=== PATIENT | female | born 1945 | race Caucasian/White ===

== ENCOUNTER → 2016-07-03 | Outpatient (CLI) | payer OTHER, BC | LOC: BMCIMAGING 10:17 | PROVIDERS: ATTEND Physician Assistant | DX: Z09 Encounter for follow-up examination after completed treatment for conditions other than malignant neoplasm (principal); Z96.641 Presence of right artificial hip joint ==

== ENCOUNTER → 2016-08-23 | Outpatient (CLI) | payer OTHER, BC | LOC: FIMAGING 10:23 | PROVIDERS: ATTEND Orthopaedic Surgery | DX: Z01.818 Encounter for other preprocedural examination (principal); M17.11 Unilateral primary osteoarthritis, right knee; M23.41 Loose body in knee, right knee ==

== ENCOUNTER 2016-10-18 16:54 | Emergency (ER) | payer OTHER, BC ==
[2016-10-18 18:18] LABS: COLOR AMBER
[2016-10-18 18:26] LABS: BACTERIA 1+ /hpf (NONE SEEN); MUCUS TRACE /lpf (NONE-1+); RBC,URINE 50-182 /hpf (0-3); WBC,URINE 50-182 /hpf (0-3)
[2016-10-18] MEDS ORDERED: IBUPROFEN 600 MG TAB PO ONE (18:57)
[2016-10-18] MEDS ORDERED: DIAZEPAM 2 MG TAB PO ONE (18:57)
--- NOTE | 2016-10-18 19:02 | EDPHY ---
H & P Time Seen by Provider: 10/18/16 18:41 HPI/ROS: CHIEF COMPLAINT: Dysuria HISTORY OF PRESENT ILLNESS: This is a 71-year-old female presenting to the emergency department for back spasms. Patient was sent over by [facility] diagnosed with the UTI was already given prescription for levofloxacin and per a.m., but patient was sent over for back spasms. Patient states has history of chronic lower back pain with a small sacral fracture. Denies any nausea vomiting fever chills REVIEW OF SYSTEMS: Constitutional: No fever, no chills. Eyes: No discharge. ENT: No sore throat. Cardiovascular: No chest pain, no palpitations. Respiratory: No cough, no shortness of breath. Gastrointestinal: No abdominal pain, no vomiting. No nausea Genitourinary: No hematuria. Dysuria Musculoskeletal: Lower back pain spasms Skin: No rashes. Neurological: No headache. Smoking Status: Never smoked Physical Exam: General Appearance: Alert, no distress. Non ill-appearing nontoxic appearing Eyes: Pupils equal and round no pallor or injection. ENT, Mouth: Mucous membranes moist. Respiratory: There are no retractions, lungs are clear to auscultation. Cardiovascular: Regular rate and rhythm. Gastrointestinal: Abdomen is soft, bilateral lower quadrant tenderness suprapubic pressure, no masses Neurological: No focal deficits answering questions appropriately Skin: Warm and dry, no rashes. Musculoskeletal: Neck is supple nontender. Bilateral CVA tenderness on palpation Extremities: symmetrical, full range of motion. Constitutional: Initial Vital Signs Temperature (C) 36.8 C 10/18/16 16:59 Heart Rate 95 10/18/16 16:59 Respiratory Rate 20 10/18/16 16:59 Blood Pressure 132/98 H 10/18/16 16:59 O2 Sat (%) 94 10/18/16 16:59 O2 Delivery Mode Nasal Cannula Allergies/Adverse Reactions: cephalexin monohydrate [From Keflex] Allergy (Verified 01/09/16 13:49) Hives latex Allergy (Verified 01/09/16 13:50) Rash Penicillins Allergy (Verified 01/09/16 13:49) Hives secobarbital sodium [From Seconal] Allergy (Verified 01/09/16 13:49) Hives sulfamethoxazole [From Septra] Allergy (Verified 01/09/16 13:49) Hives trimethoprim [From Septra] Allergy (Verified 01/09/16 13:49) Hives Home Medications: Medication Instructions Recorded Atenolol [Tenormin 25 mg (*)] 25 mg PO DAILY 01/09/16 Compounded Estrogen Cream E3 18/E2 1 eber TD AD 01/09/16 14.4/P4 250mg Compounded P4 Progesterone Capsule 1 cap PO AD 01/09/16 250mg Thyroid [[place] Thyroid 60 MG (*)] 45 mg PO DAILY10 01/09/16 GABAPENTIN 10/18/16 Medical Decision Making ED Course/Re-evaluation: Discussed ED plan of care: UA with culture. Ibuprofen Valium given for back spasms. 1939: Patient is already prescribed levofloxacin by provider at [facility]. Patient states she is feeling somewhat better now the that fentanyl injection has started working, along with the ibuprofen. Discharge home---> stable, discussed all discharge instructions Differential Diagnosis: Other differential diagnosis considered but not limited to pyelonephritis, urosepsis, and back spasms - Data Points Laboratory Results: 10/18/16 17:50 Urine Color JIA Urine Appearance MODERATELY TURBID Urine pH TNP Ur Specific [place] TNP Urine Protein TNP Urine Ketones TNP Urine Blood TNP Urine Nitrate TNP Urine Bilirubin TNP Urine Urobilinogen TNP Ur Leukocyte Esterase TNP Urine RBC 50-182 /hpf H /hpf (0-3) Urine WBC 50-182 /hpf H /hpf (0-3) Ur Epithelial Cells NONE SEEN /lpf /lpf (NONE-1+) Urine Bacteria 1+ /hpf H /hpf (NONE SEEN) Urine Mucus TRACE /lpf /lpf (NONE-1+) Urine Glucose TNP Medications Given: Discontinued Medications Diazepam (Valium) 2 mg PO EDNOW ONE Stop: 10/18/16 18:58 Last Admin: 10/18/16 19:58 Dose: 2 mg Ibuprofen (Motrin) 600 mg PO EDNOW ONE Stop: 10/18/16 18:58 Last Admin: 10/18/16 19:20 Dose: 600 mg Departure - Departure Disposition: Home, Routine, Self-Care Clinical Impression: Urinary tract infection Qualifiers: Urinary tract infection type: site unspecified Hematuria presence: without hematuria Qualified Code(s): N39.0 - Urinary tract infection, site not specified Condition: Good Instructions: Urinary Tract Infection in Women (ED), Dysuria (ED), Urinary Traction Infection in Older Adults (ED) Additional Instructions: 1. Take all antibiotics as prescribed by previous provider 2. Cranberry juice may be beneficial, increase water intake 3. Ibuprofen 600 mg every 6-8 hours as needed 4. I would also continue taking your additional medications as prescribed by her previous provider Referrals: Juanita Mason MD [Primary Care Provider] - As per Instructions
[2016-10-18 20:05] VITALS: BP 140/82; PULSE 93; RESP 18; TEMP 98.6; O2SAT 98
== END 2016-10-18 20:15 | disposition home or self-care (01) ==
DX: N39.0 Urinary tract infection, site not specified (principal); B96.89 Other specified bacterial agents as the cause of diseases classified elsewhere

== ENCOUNTER 2016-11-04 07:15 | Inpatient (IN) | payer OTHER, BC ==
[2017-01-13] MEDS ORDERED: VANCOMYCIN HCL/NORMAL SALINE 250 ML IV ONE ×2 (06:00→19:00)
[2017-01-13] MEDS ORDERED: TRANEXAMIC ACID 725 MG in NS 100 ML IV ONE (06:00)
[2017-01-13] MEDS ORDERED: ROPIVACAINE 0.2% 80 MG, EPINEPHrine 0.2 MG, KETOROLAC TROMETHAMINE 30 MG, morphINE 10 M... IU ONE (06:00)
[2017-01-13] MEDS ORDERED: VANCOMYCIN PHARMACY TO DOSE MISC ONE (06:00)
[2017-01-13] MEDS ORDERED: FAMOTIDINE 20 MG TAB PO ONE (06:12)
[2017-01-13] MEDS ORDERED: ACETAMINOPHEN 325 MG TAB PO ONE (06:12)
[2017-01-13] MEDS ORDERED: LIDOCAINE 1% 2 ML INJ ID PRN (06:13)
[2017-01-13] MEDS ORDERED: LR 1,000 ML IV ONE (06:13)
[2017-01-13] MEDS ORDERED: LIDOCAINE 1% 2 ML INJ ONE (06:28)
--- NOTE | 2017-01-13 06:41 | PDHPUP ---
History & Physical Update H&P update statement: This history and physical update is based on an assessment of the patient which was completed after admission or registration (within 24 hours), but prior to the surgery/procedure.
--- NOTE | 2017-01-13 06:43 | PDIAF ---
- Diagnosis Diagnosis: right knee djd Code Status: Full Code - Medication Management Discharge Medications: Medications to Continue on Transfer [place] Thyroid 60 MG (*) 60 mg PO DAILY 01/03/17 [Last Taken Unknown] Atenolol [Tenormin 25 mg (*)] 25 mg PO HS 01/03/17 [Last Taken 01/12/17 21:00] Discharge Medications: Refer to the Discharge Home Medication list for PRN reason. - Orders Services needed: Physical Therapy Activity/Weight Bearing Restrictions: daily dressing changes. may shower without bandage. no soaking or immersion. wbat. rom as tolerated. seek attn for increasing leg pain, swelling, drainage, other focal complaint - Follow Up Care Current Providers and Referrals: Juanita Mason MD [Primary Care Provider] -
[2017-01-13] MEDS ORDERED: THROMBIN (BOVINE) 5,000 UNIT VIAL TP ONE (07:06)
[2017-01-13] MEDS ORDERED: CALCIUM CHLORIDE 1 GM/10 ML INJ ONE (07:06)
--- NOTE | 2017-01-13 07:09 | PDANEPAE ---
ANE History of Present Illness Knee OA ANE Past Medical History - Cardiovascular History Hx Hypertension: Yes Hx Arrhythmias: No Hx Chest Pain: No Hx Coronary Artery / Peripheral Vascular Disease: No Hx CHF / Valvular Disease: No Hx Palpitations: No Cardiovascular History Comment: pcp monitors bp meds - Pulmonary History Hx COPD: No Hx Asthma/Reactive Airway Disease: No Hx Recent Upper Respiratory Infection: No Hx Oxygen in Use at Home: No Hx Sleep Apnea: No Sleep Apnea Screening Result - Last Documented: Negative - Neurologic History Hx Cerebrovascular Accident: No Hx Seizures: No Hx Dementia: No - Endocrine History Hx Diabetes: No Endocrine History Comment: hypothyroidism - Renal History Hx Renal Disorders: No - Liver History Hx Hepatic Disorders: No - Neurological & Psychiatric Hx Hx Neurological and Psychiatric Disorders: No - Cancer History Hx Cancer: No - Congenital Disorder History Hx Congenital Disorders: No - GI History Hx Gastrointestinal Disorders: No - Other Health History Other Health History: wears glasses - Chronic Pain History Chronic Pain: Yes (right knee and lower back) - Surgical History Prior Surgeries: 01/22/16 Right KURT with Repine. colonoscopy. right knee scope. cataract surgery fall 2014 ANE Review of Systems Review of Systems: - Exercise capacity METS (RN): 4 METS ANE Patient History - Allergies Allergies/Adverse Reactions: cephalexin monohydrate [From Keflex] Allergy (Verified 01/07/17 14:05) Hives latex Allergy (Verified 01/07/17 14:05) Rash Penicillins Allergy (Verified 01/07/17 14:05) Hives secobarbital sodium [From Seconal] Allergy (Verified 01/07/17 14:05) Hives sulfamethoxazole [From Septra] Allergy (Verified 01/07/17 14:05) Hives trimethoprim [From Septra] Allergy (Verified 01/07/17 14:05) Hives narcotics Allergy (Uncoded 01/07/17 14:05) Vomiting - Home Medications Home Medications: [place] Thyroid 60 MG (*) 60 mg PO DAILY 01/03/17 [Last Taken Unknown] Atenolol [Tenormin 25 mg (*)] 25 mg PO HS 01/03/17 [Last Taken 01/12/17 21:00] - NPO status NPO Since - Liquids (Date): 01/12/17 NPO Since - Liquids (Time): 21:00 NPO Since - Solids (Date): 01/12/17 NPO Since - Solids (Time): 18:00 - Smoking Hx Smoking Status: Never smoked - Family Anes Hx Family Hx Anesthesia Complications: none ANE Labs/Vital Signs - Vital Signs Blood Pressure: 122/82 Heart Rate: 70 Respiratory Rate: 16 O2 Sat (%): 95 Height: 162.56 cm Weight: 72.575 kg ANE Physical Exam - Airway Neck exam: FROM Mallampati Score: Class 2 Mouth exam: normal dental/mouth exam - Pulmonary Pulmonary: no respiratory distress - Cardiovascular Cardiovascular: regular rate and rhythym - ASA Status ASA Status: II ANE Anesthesia Plan Anesthesia Plan: spinal Regional Anesthesia: adductor canal FNB
[2017-01-13] MEDS ORDERED: POLYMYXIN B SULFATE 500,000 UNIT/10 ML SYR IRR ONE (07:10)
[2017-01-13] MEDS ORDERED: MIDAZOLAM 2 MG/2 ML VIAL IVP ONE (07:12)
[2017-01-13] MEDS ORDERED: SCOPOLAMINE HYDROBROMIDE 1 MG/3 DAYS PATCH TD ONE (07:13)
[2017-01-13] MEDS ORDERED: PROPOFOL/EMULSION 500 MG/50 ML BOTTLE IV ONE ×2 (07:18→08:39)
[2017-01-13] MEDS ORDERED: LACTULOSE 20 GM/30 ML UDCUP PO PRN (07:49)
[2017-01-13] MEDS ORDERED: POLYETHYLENE GLYCOL 3350 17 GM PKT PO PRN (07:49)
[2017-01-13] MEDS ORDERED: ONDANSETRON DISINTEGRATING 4 MG TAB PO PRN (07:49)
[2017-01-13] MEDS ORDERED: diphenhydrAMINE 25 MG CAP PO PRN (07:49)
[2017-01-13] MEDS ORDERED: DIPHENOXYLATE/ATROPINE LOMOTIL 1 TAB PO PRN (07:49)
[2017-01-13] MEDS ORDERED: oxyCODONE IR 5 MG TAB PO PRN (07:49)
[2017-01-13] MEDS ORDERED: BISACODYL 10 MG SUPP PR PRN (07:49)
[2017-01-13] MEDS ORDERED: PROMETHAZINE HCL 25 MG SUPPR PR PRN (07:49)
[2017-01-13] MEDS ORDERED: PROMETHAZINE HCL 25 MG/ML INJ IVP PRN ×2 (07:49→09:34)
[2017-01-13] MEDS ORDERED: traMADol 50 MG TAB PO PRN (07:49)
[2017-01-13] MEDS ORDERED: TEMAZEPAM 15 MG CAP PO PRN (07:49)
[2017-01-13] MEDS ORDERED: DIAZEPAM 5 MG TAB PO PRN (07:49)
[2017-01-13] MEDS ORDERED: ONDANSETRON 4 MG/2 ML VIAL IVP PRN ×2 (07:49→09:34)
[2017-01-13] MEDS ORDERED: MAGNESIUM HYDROXIDE 30 ML UDCUP PO PRN (07:49)
[2017-01-13] MEDS ORDERED: METOCLOPRAMIDE 10 MG/2 ML VIAL IVP PRN (07:49)
[2017-01-13] MEDS ORDERED: LR 1,000 ML IV SCH (08:00)
[2017-01-13] MEDS ORDERED: PHENYLEPHRINE HCL 100 MCG/ML SYR ONE (08:16)
[2017-01-13] MEDS ORDERED: epHEDrine SULFATE 10 MG/ML SYR ONE (08:38)
[2017-01-13] MEDS ORDERED: ARMOUR THYROID 60 MG PO SCH (09:00)
[2017-01-13] MEDS ORDERED: ROPIVACAINE HCL 150 MG/30 ML INJ ONE (09:13)
[2017-01-13] MEDS ORDERED: HYDROmorphONE/DILAUDID 1 MG/ML INJ IVP PRN (09:34)
[2017-01-13] MEDS ORDERED: fentaNYL 100 MCG/2 ML INJ IVP PRN (09:34)
[2017-01-13] MEDS ORDERED: NALOXONE HCL 0.4 MG/ML INJ IVP PRN (09:34)
--- NOTE | 2017-01-13 10:09 | POSTANESTH ---
Post Anesthetic Evaluation Cardiovascular Status: Normal, Stable Respiratory Status: Normal, Stable Level of Consciousness/Mental Status: Can Participate in Eval Pain Control: Adequate, Prn Tx Ordered Nausea/Vomiting Control: Adequate, Prn Tx Ordered Complications Possibly Related to Anesthesia: None Noted (Adductor canal block done in recovery)
[2017-01-13] MEDS: THYROID 60 MG TAB PO SCH (11:58)
[2017-01-13] MEDS: TRANEXAMIC ACID 650 MG TAB PO SCH ×3 (11:58→23:15)
[2017-01-13] MEDS: SENNOSIDES/DOCUSATE SODIUM TAB PO SCH ×2 (11:58→20:32)
[2017-01-13] MEDS: ACETAMINOPHEN 325 MG TAB PO SCH ×3 (12:05→23:15)
--- NOTE | 2017-01-13 15:15 | ASMTCMCOM ---
CM Note CM Note Notes: 01/13/2017 Case Management Note Reviewed chart. PT recommending home with outpatient rehab. No case management d/c needs identified d/t marital status and pt age. Case Management d/c poc: Home with family support when medically stable with follow up as directed. Case Management available if needs change. Date Signed: 01/13/2017 03:14 PM Electronically Signed By:Mirna Knowles RN
[2017-01-13] MEDS: FAMOTIDINE 20 MG TAB PO SCH (20:32)
[2017-01-13] MEDS: ASPIRIN 325 MG TAB PO SCH (20:32)
[2017-01-13] MEDS ORDERED: ATENOLOL 25 MG TAB PO SCH (21:00)
[2017-01-14 05:38] LABS: HEMATOCRIT 32.6 % (38.0-47.0); HEMOGLOBIN 11.3 g/dL (12.6-16.3)
[2017-01-14] MEDS: ACETAMINOPHEN 325 MG TAB PO SCH ×2 (05:43→11:32)
--- NOTE | 2017-01-14 07:27 | PDIAF ---
- Diagnosis Diagnosis: right knee djd Code Status: Full Code - Medication Management Discharge Medications: Medications to Continue on Transfer [place] Thyroid 60 MG (*) 60 mg PO DAILY 01/03/17 [Last Taken Unknown] Atenolol [Tenormin 25 mg (*)] 25 mg PO HS 01/03/17 [Last Taken 01/12/17 21:00] Aspirin [Aspirin 325 mg (*)] 325 mg PO DAILY tab 01/14/17 [Last Taken Unknown] Ondansetron Odt [Zofran Odt 4 mg (*)] 4 mg PO Q4HRS PRN #30 tab 01/14/17 [Last Taken Unknown] oxyCODONE IR [Oxycodone Ir (*)] 5 - 10 mg PO Q3HRS PRN #90 tab 01/14/17 [Last Taken Unknown] traMADol [Ultram 50 mg (*)] 50 mg PO Q6HRS PRN #60 tab 01/14/17 [Last Taken Unknown] Discharge Medications: Refer to the Discharge Home Medication list for PRN reason. - Orders Services needed: Physical Therapy Diet Recommendation: no restrictions on diet Diet Texture: Regular Texture Diet Activity/Weight Bearing Restrictions: daily dressing changes. may shower without bandage. no soaking or immersion. wbat. rom as tolerated. seek attn for increasing leg pain, swelling, drainage, other focal complaint - Follow Up Care Current Providers and Referrals: Juanita Mason MD [Primary Care Provider] -
[2017-01-14] MEDS: FAMOTIDINE 20 MG TAB PO SCH (07:54)
[2017-01-14] MEDS: ASPIRIN 325 MG TAB PO SCH (07:54)
[2017-01-14] MEDS: SENNOSIDES/DOCUSATE SODIUM TAB PO SCH (07:54)
[2017-01-14] MEDS: THYROID 60 MG TAB PO SCH (11:31)
[2017-01-14 11:34] VITALS: BP 110/66; PULSE 54; RESP 16; TEMP 98.2; O2SAT 94
--- NOTE | 2017-01-14 12:16 | GDS ---
[f rep st] DISCHARGE SUMMARY ADMISSION DIAGNOSIS: Right knee degenerative joint disease. DISCHARGE DIAGNOSIS: Right knee degenerative joint disease. PROCEDURE: Right total knee arthroplasty. OPERATIVE INDICATIONS: The patient is a 72-year-old woman who has end-stage arthritis to her right k nee. Clinical and radiographic features are consistent with this. She has failed all attempts at co nservative management. I have, therefore, recommended total knee replacement. She understood the ri sks, benefits, alternatives, and wished to proceed. Written consent was signed and placed in patient 's chart. HOSPITAL COURSE: The patient was admitted overnight after uncomplicated total knee arthroplasty. Abdifatah virgen tolerated the procedure well. At the time of discharge, she is tolerating an oral diet. Her pain is well controlled on oral medicines. She is voiding and stooling without difficulty. Incision is c lean, dry, and intact. Dressing is clean, dry, and intact. She has negative Homans. X-rays are sta ble with anatomic alignment. DISCHARGE ACTIVITY: She is weightbearing as tolerated. Range of motion as tolerated. Daily dressin g changes. No soaking or immersion. May shower without the bandage. DISCHARGE MEDICATIONS: Tramadol 50 mg 1-2 every 6 hours p.r.n. pain, oxycodone 5-15 mg q.4 hours p.r .n. pain, Zofran 4 mg oral tablet, 1 p.o. q.8 hours. DISCHARGE INSTRUCTIONS: Seek attention for increasing redness, swelling, drainage, discharge. FOLLOWUP: Follow up in the orthopedic clinic in 2 weeks. Copy requested to: primary care physician /[id number]/MODL
--- NOTE | 2017-01-14 14:19 | ASMTCMCOM ---
CM Note CM Note Notes: CM Discharge Note: Spoke with patient who wants to discharge home with outpatient PT; she did this last time she had a TKA with good results. Per PT notes from today and yesterday, this is a sufficient plan. I encouraged patient to call her surgeon's office if she had a change of heart. She has an RX for the outpatient rehab. Date Signed: 01/14/2017 02:18 PM Electronically Signed By:Masha Lynch RN
--- NOTE | 2017-01-14 14:52 | ASDISCHSUM ---
Discharge Information Plan Status:Home with No Needs Medically Cleared to Leave: Discharge Date:01/14/2017 02:22 PM CM D/C Disposition:Home, Routine, Self-Care ADT D/C Disposition:Home, Routine, Self-Care Projected Discharge Date:01/14/2017 02:22 PM Transportation at D/C:Family Discharge Delay Reason: Follow-Up Date:01/14/2017 02:22 PM Discharge Slot: Final Diagnosis: Placement Information Patient Contact Information Contact Name:CHEYANNE Relationship: Address:[address] City:[place] Alternate Phone: [facility]/Zip Code:[place] [address] Email: Financial Information Financial Class: Primary Plan Desc:MEDICARE INPATIENT Primary Plan Number:[id number] Secondary Plan Desc: OUT OF STATE [facility] Secondary Plan Number:[id number] Assessment Information [facility] CM Progress Note CM Note CM Note Notes: 01/13/2017 Case Management Note Reviewed chart. PT recommending home with outpatient rehab. No case management d/c needs identified d/t marital status and pt age. Case Management d/c poc: Home with family support when medically stable with follow up as directed. Case Management available if needs change. Date Signed: 01/13/2017 03:14 PM Electronically Signed By:Mirna Knowles RN [facility] CM Progress Note CM Note CM Note Notes: CM Discharge Note: Spoke with patient who wants to discharge home with outpatient PT; she did this last time she had a TKA with good results. Per PT notes from today and yesterday, this is a sufficient plan. I encouraged patient to call her surgeon's office if she had a change of heart. She has an RX for the outpatient rehab. Date Signed: 01/14/2017 02:18 PM Electronically Signed By:Masha Lynch RN Intervention Information
[2017-01-16] MEDS ORDERED: PATCH REMOVAL 1 EA PATCH TD SCH (07:14)
--- NOTE | 2017-01-17 23:10 | GOP ---
[f rep st] OPERATIVE REPORT DATE OF OPERATION: 01/13/2017 SURGEON: Bipin Manzano MD ASSOCIATE DIRECTOR OF SALES: Ernesto Gallagher, W[employer]TER, [facility], who was a medical necessity for the entirety of the case. PREOPERATIVE DIAGNOSIS: Right knee degenerative joint disease. POSTOPERATIVE DIAGNOSIS: Right knee degenerative joint disease. PROCEDURE PERFORMED: Right total knee arthroplasty, MAKOplasty. FINDINGS: SPECIMENS: To pathology, the bony cuts. DESCRIPTION OF PROCEDURE: The patient was identified in the preanesthesia area. The right knee wing rly demarcated as the operative site with indelible marker. She was given 2 g of Ancef intravenously en route to the operative suite. In the OR, general endotracheal anesthesia was administered. Atte ntion was turned to the right knee which was sterilely prepped and draped in the usual fashion. Appr opriate time-out was carried out. The limb was then exsanguinated and the tourniquet inflated to 275 mmHg. A standard anterior midline incision was made. Thick subcutaneous flaps were elevated follow ed by a medial parapatellar arthrotomy. The knee demonstrated tricompartmental arthritis. Decision was made to proceed with total knee replacement. Therefore, through 2 separate percutaneous incision s at the mid femur and mid falk, 2 pins were then placed and a femoral and tibial reference array aff ixed respectively. The femoral and tibial check point were fixed. The bony landmarks were then ente red into the computer in standard fashion. Soft tissue releases and adjustment of the components wer e facilitated to balance the knee throughout the flexion/extension arc. Using the MAKOplasty robot a ssistance, the femoral cuts and tibial cut were made. All bony fragments were withdrawn. A size 3 t ibial notch cutter was then placed and the notch cut made. Trial reduction with the femur revealed a ppropriate positioning alignment. A size 3 tibia was then pinned into the correct position. The ryley tral fins were placed and a trial reduction over a 9 mm polyethylene revealed full flexion, extension with stability throughout the flexion-extension arc. The patella was then everted, cut in a freehan d cutting technique and a 35 mm asymmetrical patella. Drill holes were made. The trial components w ere withdrawn. The bony surfaces were thoroughly cleansed and dried. In sequential fashion, the tib ial, femoral, and patellar components were cemented. The size 3 x 9 mm tibial polyethylene insert wa s then impacted, confirmed to be fully seated. The knee was copiously irrigated. All marginal cemen t was withdrawn. The capsular tissues were injected with a joint cocktail of ropivacaine, morphine, T oradol, and epinephrine. Medial parapatellar arthrotomy was closed using #1 Ethibond suture with the knee in 20 degrees of flexion. The knee was instilled with platelet-rich plasma solution. Subcutan eous tissue closed using a [place] Monocryl suture and emmie. Sterile dressing was applied. The pat ient was awakened, extubated, and taken to recovery room in good, stable condition. OPERATIVE INDICATIONS: Patient is a 72-year-old woman who has end-stage arthritis to her right knee. Clinical and radiographic features are consistent with this. She has failed all attempts at conser vative management. I have, therefore, recommended total knee replacement. She understood the risks, benefits, alternatives, and wished to proceed. Written consent was signed and placed in patient's c mitchell. TOTAL TOURNIQUET TIME: 65 minutes. COMPLICATIONS: None. IMPLANTS: [place] Triathlon PS femoral knee size 3, tibial base plate size 3. Tibial polyethylene 3 x 9 mm thick, and an asymmetrical all-poly patella. An additional tibial polyethylene insert had to be utilized given an asymmetric seating. This required removal of the initial component once the ce ment had fully dried and the final component was replaced and confirmed to be fully seated. DISPOSITION: To the recovery room, then the floor. She is weightbearing, range of motion as tolerat ed. /[id number]/MODL
== END 2017-01-14 14:22 | disposition home or self-care (01) | DRG 470 ==
LOC: F3N 01-13 05:47
PROVIDERS: ADMIT Orthopaedic Surgery; ATTEND Orthopaedic Surgery
PROC: 0SRC0J9 Replacement of Right Knee Joint with Synthetic Substitute, Cemented, Open Approach (ICD-10-PCS; principal; 2017-01-13 07:30)
DX: M17.11 Unilateral primary osteoarthritis, right knee (principal); I10 Essential (primary) hypertension; E03.9 Hypothyroidism, unspecified; Z96.641 Presence of right artificial hip joint
CPT/HCPCS: 97116-GP; 97161-GP; 97165-GO; C1713; G8978-GP-CK; G8979-GP-CI; G8987-GO-CI; G8988-GO-CI; G8989-GO-CI; J0171; J1885; J2250; J2370; J2704; J2795; J3370

== ENCOUNTER → 2016-12-17 | Outpatient (CLI) | payer OTHER, BC | LOC: BMCIMAGING 10:36 | PROVIDERS: ATTEND Internal Medicine | DX: R06.02 Shortness of breath (principal); M25.78 Osteophyte, vertebrae ==

== ENCOUNTER → 2017-01-22 | Outpatient (CLI) | payer OTHER, BC | LOC: FIMAGING 15:26 | PROVIDERS: ATTEND Orthopaedic Surgery | DX: R22.41 Localized swelling, mass and lump, right lower limb (principal); Z96.651 Presence of right artificial knee joint ==

== ENCOUNTER → 2017-02-25 | Outpatient (CLI) | payer OTHER, BC | LOC: BMCIMAGING 10:21 | PROVIDERS: ATTEND Physician Assistant | DX: Z47.1 Aftercare following joint replacement surgery (principal); Z96.651 Presence of right artificial knee joint; M79.89 Other specified soft tissue disorders; M25.461 Effusion, right knee ==

== ENCOUNTER → 2017-03-05 | Outpatient (CLI) | payer OTHER, BC | LOC: BMCIMAGING 13:25 | PROVIDERS: ATTEND Internal Medicine | DX: Z12.31 Encounter for screening mammogram for malignant neoplasm of breast (principal); Z13.820 Encounter for screening for osteoporosis; D25.9 Leiomyoma of uterus, unspecified; Z80.41 Family history of malignant neoplasm of ovary; M85.89 Other specified disorders of bone density and structure, multiple sites | CPT/HCPCS: G0202 ==

== ENCOUNTER → 2017-04-08 | Outpatient (CLI) | payer OTHER, BC | LOC: BMCIMAGING 10:32 | PROVIDERS: ATTEND Physician Assistant | DX: Z47.1 Aftercare following joint replacement surgery (principal); Z96.651 Presence of right artificial knee joint ==

== ENCOUNTER → 2017-06-25 | Outpatient (CLI) | payer OTHER, BC | LOC: BMCIMAGING 09:33 | PROVIDERS: ATTEND Physician Assistant | DX: Z47.1 Aftercare following joint replacement surgery (principal); Z96.651 Presence of right artificial knee joint ==

== ENCOUNTER 2017-12-08 10:54 | Observation (INO) | payer OTHER, BC ==
--- NOTE | 2017-12-08 11:06 | EDPHY ---
H & P Time Seen by Provider: 12/08/17 11:03 HPI/ROS: CHIEF COMPLAINT: Chest pain with exertion HISTORY OF PRESENT ILLNESS: Patient is a history of hypertension. She has had some exertional symptoms over the last month. There is a hill next to her house when she walks up them she gets chest tightness which resolved when she stopped or when she gets the top and it is flat. This morning she awakened at 7 :00 a.m. With chest discomfort and tightness taken aspirin and went away after several minutes. When she did her usual hill walk the chest tightness was much worse than usual, associated with shortness of breath and radiation to both arms. Symptoms were moderate but now are gone because she turned around and came to the ER. Not associated with belching or burping or cough or hemoptysis or leg swelling. REVIEW OF SYSTEMS: Eye: no change in vision ENT: no sore throat Cardiac: HPI Pulmonary: no cough or SOB Abdomen: no vomiting, diarrhea, abdominal pain Musculoskeletal: no back pain Skin: no rash Neuro: no headache Constitutional: no fever : no urinary symptoms A comprehensive 10 point review of systems is otherwise negative aside from elements mentioned in the history of present illness. PAST MEDICAL HISTORY: Negative for cholesterol or diabetes, positive for hypertension and right hip replacement. Hypothyroid. Family history both parents had GA in their 80s Social history: Nonsmoker, scheduled to go on a trip to [place] in 2 weeks. General Appearance: Alert and conversant, cooperative. Eyes: No scleral icterus. ENT, Mouth: Normal mucous membranes. Respiratory: Normal respiratory effort, breath sounds equal, lungs are clear to auscultation. Cardiovascular: Regular rate and rhythm. Gastrointestinal: Abdomen is soft and non tender. Neurological: Alert, face symmetric, normal motor and sensory in extremities. Skin: Warm and dry, no rashes. Musculoskeletal: No peripheral edema. Psychiatric: Not agitated. Emergency Department course/MDM: No aspirin as she took a regular aspirin at 7:00 a.m.. 1150 Santosh @ [facility], to see in ED. High suspicion for acute coronary syndrome, unstable angina. Dr. Alvarez to see per Santosh Ramos, at 12:10 p.m. 1308: Per cardiology, to catheterization lab. Smoking Status: Never smoked Constitutional: Initial Vital Signs Temperature (C) 36.7 C 12/08/17 10:58 Heart Rate 87 12/08/17 10:58 Respiratory Rate 18 12/08/17 10:58 Blood Pressure 148/85 H 12/08/17 10:58 O2 Sat (%) 95 12/08/17 10:58 O2 Delivery Mode Room Air Allergies/Adverse Reactions: cephalexin monohydrate [From Keflex] Allergy (Verified 12/08/17 10:57) Hives latex Allergy (Verified 12/08/17 10:57) Rash Penicillins Allergy (Verified 12/08/17 10:57) Hives secobarbital sodium [From Seconal] Allergy (Verified 12/08/17 10:57) Hives sulfamethoxazole [From Septra] Allergy (Verified 12/08/17 10:57) Hives trimethoprim [From Septra] Allergy (Verified 12/08/17 10:57) Hives narcotics Allergy (Uncoded 01/07/17 14:05) Vomiting Home Medications: Medication Instructions Recorded [place] Thyroid 60 MG (*) 60 mg PO DAILY 01/03/17 Atenolol [Tenormin 25 mg (*)] 25 mg PO HS 01/03/17 Ondansetron Odt [Zofran Odt 4 mg 4 mg PO Q4HRS PRN #30 tab 01/14/17 (*)] traMADol [Ultram 50 mg (*)] 50 mg PO Q6HRS PRN #60 tab 01/14/17 Medical Decision Making - Diagnostics EKG Interpretation: 12-lead EKG interpreted by me; official reading is in computer system. My interpretation is sinus rhythm rate 74 with no ischemic changes. Imaging Results: Imaging Impressions Chest X-Ray 12/08/17 11:16 Impression: No acute findings in the chest. Imaging: I viewed and interpreted images myself Differential Diagnosis: Differential diagnosis considered for chest pain including but not limited to myocardial ischemia, aortic dissection, pericarditis, pulmonary embolus, chest wall pain, pleural inflammation and pulmonary infectious causes. - Data Points Laboratory Results: Laboratory Results 12/08/17 11:16 12/08/17 11:16 12/08/17 12/08/17 12/08/17 11:23 11:16 11:16 WBC RBC Hgb Hct MCV MCH MCHC RDW Plt Count MPV Neut % (Auto) Lymph % (Auto) [place] % (Auto) Eos % (Auto) Baso % (Auto) Nucleat RBC Rel Count Absolute Neuts (auto) Absolute Lymphs (auto) Absolute Monos (auto) Absolute Eos (auto) Absolute Basos (auto) Absolute Nucleated RBC Immature Gran % Immature Gran # PT 13.1 SEC SEC (12.0-15.0) INR 0.97 (0.83-1.16) APTT 29.0 SEC SEC (23.0-38.0) Sodium Potassium Chloride Carbon Dioxide Anion Gap BUN Creatinine Estimated GFR Glucose Calcium Magnesium 2.3 mg/dL mg/dL (1.6-2.3) POC Troponin I 0.01 ng/mL ng/mL (0.00-0.08) 12/08/17 12/08/17 11:16 11:16 WBC 7.88 10^3/uL 10^3/uL (3.80-9.50) RBC 4.79 10^6/uL 10^6/uL (4.18-5.33) Hgb 14.6 g/dL g/dL (12.6-16.3) Hct 42.4 % % (38.0-47.0) MCV 88.5 fL fL (81.5-99.8) MCH 30.5 pg pg (27.9-34.1) MCHC 34.4 g/dL g/dL (32.4-36.7) RDW 12.3 % % (11.5-15.2) Plt Count 294 10^3/uL 10^3/uL (150-400) MPV 9.0 fL fL (8.7-11.7) Neut % (Auto) 62.3 % % (39.3-74.2) Lymph % (Auto) 25.3 % % (15.0-45.0) [place] % (Auto) 9.4 % % (4.5-13.0) Eos % (Auto) 2.0 % % (0.6-7.6) Baso % (Auto) 0.5 % % (0.3-1.7) Nucleat RBC Rel Count 0.0 % % (0.0-0.2) Absolute Neuts (auto) 4.91 10^3/uL 10^3/uL (1.70-6.50) Absolute Lymphs (auto) 1.99 10^3/uL 10^3/uL (1.00-3.00) Absolute Monos (auto) 0.74 10^3/uL 10^3/uL (0.30-0.80) Absolute Eos (auto) 0.16 10^3/uL 10^3/uL (0.03-0.40) Absolute Basos (auto) 0.04 10^3/uL 10^3/uL (0.02-0.10) Absolute Nucleated RBC 0.00 10^3/uL 10^3/uL (0-0.01) Immature Gran % 0.5 % % (0.0-1.1) Immature Gran # 0.04 10^3/uL 10^3/uL (0.00-0.10) PT INR APTT Sodium 137 mEq/L mEq/L (135-145) Potassium 4.5 mEq/L mEq/L (3.3-5.0) Chloride 103 mEq/L mEq/L (97-110) Carbon Dioxide 25 mEq/l mEq/l (22-31) Anion Gap 9 mEq/L mEq/L (8-16) BUN 18 mg/dL mg/dL (7-23) Creatinine 0.6 mg/dL mg/dL (0.6-1.0) Estimated GFR > 60 Glucose 98 mg/dL mg/dL (70-100) Calcium 10.2 mg/dL mg/dL (8.5-10.4) Magnesium POC Troponin I Medications Given: Discontinued Medications Aspirin Buffered (Aspirin Ec) 325 mg PO ONCALL ONE Stop: 12/08/17 13:01 Last Admin: 12/08/17 13:47 Dose: Not Given Diazepam (Valium) 5 mg PO ONCALL ONE Stop: 12/08/17 13:01 Last Admin: 12/08/17 13:47 Dose: Not Given Diphenhydramine HCl (Benadryl) 25 mg PO ONCALL ONE Stop: 12/08/17 13:01 Last Admin: 12/08/17 13:47 Dose: Not Given Famotidine (Pepcid) 20 mg PO ONCALL ONE Stop: 12/08/17 13:01 Last Admin: 12/08/17 13:47 Dose: Not Given Point of Care Test Results: Chemistry 12/08/17 11:23 POC Troponin I 0.01 ng/mL ng/mL (0.00-0.08) Departure - Departure Disposition: To OP Cath/Surgery Clinical Impression: Chest pain Qualifiers: Chest pain type: unspecified Qualified Code(s): R07.9 - Chest pain, unspecified Condition: Good
--- NOTE | 2017-12-08 11:17 | CPEKG ---
Test Reason : OPEN Blood Pressure : / mmHG Vent. Rate : 074 BPM Atrial Rate : 073 BPM P-R Int : 184 ms QRS Dur : 083 ms QT Int : 362 ms P-R-T Axes : 066 005 053 degrees QTc Int : 402 ms Sinus rhythm Probable left atrial enlargement Confirmed by Yifan Leon ([id number]) on 12/08/2017 11:17:14 AM Referred By: Confirmed By:Yifan Leon
[2017-12-08 11:33] LABS: PLATELET COUNT 294 10^3/uL (150-400)
[2017-12-08] MEDS ORDERED: TEMAZEPAM 15 MG CAP PO PRN ×2 (13:00→14:32)
[2017-12-08] MEDS ORDERED: NITROGLYCERIN 0.4 MG BTL SL PRN ×2 (13:00→14:32)
[2017-12-08] MEDS ORDERED: diphenhydrAMINE 25 MG CAP PO ONE (13:00)
[2017-12-08] MEDS ORDERED: ASPIRIN EC 325 MG TAB PO ONE (13:00)
[2017-12-08] MEDS ORDERED: NS 1,000 ML IV SCH ×2 (13:00→14:45)
[2017-12-08] MEDS ORDERED: FAMOTIDINE 20 MG TAB PO ONE (13:00)
[2017-12-08] MEDS ORDERED: DIAZEPAM 5 MG TAB PO ONE (13:00)
[2017-12-08] MEDS ORDERED: ACETAMINOPHEN 325 MG TAB PO PRN (13:00)
[2017-12-08] MEDS ORDERED: LIDOCAINE 1% 300 MG/30 ML SDV ONE ×2 (13:02→16:17)
[2017-12-08] MEDS ORDERED: fentaNYL 100 MCG/2 ML INJ ONE (13:02)
[2017-12-08] MEDS ORDERED: VERAPAMIL 5 MG/2 ML VIAL ONE (13:03)
[2017-12-08] MEDS ORDERED: HEPARIN 10,000 UNIT/10 ML MDV (1,000 UNIT/ML) ONE (13:03)
[2017-12-08] MEDS ORDERED: MIDAZOLAM 2 MG/2 ML VIAL ONE (13:03)
[2017-12-08] MEDS ORDERED: IOPAMIDOL (ISOVUE-370) 150 ML BTL IV ONE ×2 (13:04→14:26)
[2017-12-08 13:15] LABS: INR 0.97 (0.83-1.16); PROTIME(PATIENT) 13.1 SEC (12.0-15.0)
[2017-12-08] MEDS ORDERED: ONDANSETRON 4 MG/2 ML VIAL ONE (13:26)
--- NOTE | 2017-12-08 13:33 | PDPROPOC ---
Sedation Plan of Care Sedation Plan of Care: vital signs stable, mental status noted, patient educated of risks, benefits, alternatives, patient can tolerate sedation ASA Classification: ASA 3 Planned drugs: fentanyl, midazolam Mallampati Score: Class 3 Mallampati Reference Image: Patient passed 3-3-2 rule?: No
--- NOTE | 2017-12-08 13:37 | PDGENHP ---
History and Physical - Chief Complaint chest pain fabio rest - History of Present Illness Progressive angina for the last month. Now chest pain at rest that awakened her from sleep. History Information - Allergies/Home Medication List Allergies/Adverse Reactions: cephalexin monohydrate [From Keflex] Allergy (Verified 12/08/17 10:57) Hives latex Allergy (Verified 12/08/17 10:57) Rash Penicillins Allergy (Verified 12/08/17 10:57) Hives secobarbital sodium [From Seconal] Allergy (Verified 12/08/17 10:57) Hives sulfamethoxazole [From Septra] Allergy (Verified 12/08/17 10:57) Hives trimethoprim [From Septra] Allergy (Verified 12/08/17 10:57) Hives narcotics Allergy (Uncoded 01/07/17 14:05) Vomiting Home Medications: [place] Thyroid 60 MG (*) 60 mg PO DAILY 01/03/17 [Last Taken Unknown] Atenolol [Tenormin 25 mg (*)] 25 mg PO HS 01/03/17 [Last Taken 01/12/17 21:00] I have personally reviewed and updated: family history, medical history, social history, surgical history - Past Medical History hypertension Additional medical history: Prior right hip and knee replacement - Family History Positive for: male first degree with history of premature CAD - Social History Smoking Status: Never smoked Alcohol Use: Rarely Drug Use: None 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[employer]) Review of Systems Review of Systems: Cardiac: Reports: chest pain Respiratory: Reports: shortness of breath Physical Exam Physical Exam: Temp Pulse Resp BP Pulse Ox 36.7 C 73 18 135/75 H 97 12/08/17 12:55 12/08/17 12:55 12/08/17 12:55 12/08/17 12:55 12/08/17 12:55 Constitutional: no apparent distress Eyes: PERRL, anicteric sclera, EOMI, No pale conjunctiva Ears, Nose, Mouth, Throat: moist mucous membranes, hearing normal Cardiovascular: regular rate and rhythym, no murmur, rub, or gallop, No JVD Respiratory: no respiratory distress Gastrointestinal: normoactive bowel sounds, soft, non-tender abdomen Skin: warm, normal color Neurologic: AAOx3, sensation intact bilaterally Psychiatric: interacting appropriately, anxious Lab Data & Imaging Review 12/08/17 11:16 12/08/17 11:16 WBC 7.88 10^3/uL (3.80-9.50) 12/08/17 11:16 RBC 4.79 10^6/uL (4.18-5.33) 12/08/17 11:16 Hgb 14.6 g/dL (12.6-16.3) 12/08/17 11:16 Hct 42.4 % (38.0-47.0) 12/08/17 11:16 MCV 88.5 fL (81.5-99.8) 12/08/17 11:16 MCH 30.5 pg (27.9-34.1) 12/08/17 11:16 MCHC 34.4 g/dL (32.4-36.7) 12/08/17 11:16 RDW 12.3 % (11.5-15.2) 12/08/17 11:16 Plt Count 294 10^3/uL (150-400) 12/08/17 11:16 MPV 9.0 fL (8.7-11.7) 12/08/17 11:16 Neut % (Auto) 62.3 % (39.3-74.2) 12/08/17 11:16 Lymph % (Auto) 25.3 % (15.0-45.0) 12/08/17 11:16 [place] % (Auto) 9.4 % (4.5-13.0) 12/08/17 11:16 Eos % (Auto) 2.0 % (0.6-7.6) 12/08/17 11:16 Baso % (Auto) 0.5 % (0.3-1.7) 12/08/17 11:16 Nucleat RBC Rel Count 0.0 % (0.0-0.2) 12/08/17 11:16 Absolute Neuts (auto) 4.91 10^3/uL (1.70-6.50) 12/08/17 11:16 Absolute Lymphs (auto) 1.99 10^3/uL (1.00-3.00) 12/08/17 11:16 Absolute Monos (auto) 0.74 10^3/uL (0.30-0.80) 12/08/17 11:16 Absolute Eos (auto) 0.16 10^3/uL (0.03-0.40) 12/08/17 11:16 Absolute Basos (auto) 0.04 10^3/uL (0.02-0.10) 12/08/17 11:16 Absolute Nucleated RBC 0.00 10^3/uL (0-0.01) 12/08/17 11:16 Immature Gran % 0.5 % (0.0-1.1) 12/08/17 11:16 Immature Gran # 0.04 10^3/uL (0.00-0.10) 12/08/17 11:16 PT 13.1 SEC (12.0-15.0) 12/08/17 11:16 INR 0.97 (0.83-1.16) 12/08/17 11:16 APTT 29.0 SEC (23.0-38.0) 12/08/17 11:16 Sodium 137 mEq/L (135-145) 12/08/17 11:16 Potassium 4.5 mEq/L (3.3-5.0) 12/08/17 11:16 Chloride 103 mEq/L (97-110) 12/08/17 11:16 Carbon Dioxide 25 mEq/l (22-31) 12/08/17 11:16 Anion Gap 9 mEq/L (8-16) 12/08/17 11:16 BUN 18 mg/dL (7-23) 12/08/17 11:16 Creatinine 0.6 mg/dL (0.6-1.0) 12/08/17 11:16 Estimated GFR > 60 12/08/17 11:16 Glucose 98 mg/dL (70-100) 12/08/17 11:16 Calcium 10.2 mg/dL (8.5-10.4) 12/08/17 11:16 Magnesium 2.3 mg/dL (1.6-2.3) 12/08/17 11:16 POC Troponin I 0.01 ng/mL (0.00-0.08) 12/08/17 11:23 Visualized and Interpreted EKG results: Yes EKG additional interpertation: NSR no ischemic changes Assessment & Plan Assessment: The patient has progressive CCS class four angina. The patient has been experiencing chest pain with discomfort radiating to both arms as well as shortness of breath. The patient needs angiography. We discussed the risks, expected benefits and potential complications of this course of action with the patient and she wishes to proceed as planned. Some potential benefits include angina relief,definitive assessment of coronary anatomy and LV function. Complications have been described as , permanent and disabling stroke, heart attack, abnormal heart rhythm, bleeding and damage to blood vessels resulting in tissue or limb loss.
--- NOTE | 2017-12-08 13:41 | GCON ---
CARDIOLOGY CONSULTATION REFERRING PHYSICIAN: Yifan Leon MD SUPERVISING DRIVER/REFUSE COLLECTOR: Dr. Alvarez. INDICATION FOR CARDIOLOGY CONSULTATION: Exertional chest pain. HISTORY OF PRESENT ILLNESS: The patient is a 72-year-old female who reports over the last month and a half noticing a midsternal exertional chest pressure. She reports every day a routine walk, in which one part has a significant hill. She has noted when walking this hill, she develops a midsternal chest pressure. As she reaches the top of the hill, she usually stops for a few minutes, and the pressure dissipates. She initially thought that this was due to being out of shape, but reporting this morning, she did wake up approximately 7 a.m. with a midsternal chest tightness, which concerned her, reporting similar to what it was when she had been hiking. She did take aspirin , and within 5-10 minutes of chewing the aspirin, symptoms did subside. After the episode this morning, she did attempt to do her hike again and did report midsternal chest pressure as usual, but feeling as it had worsened, also reporting radiation into both arms and had noted some shortness of breath. Symptoms did subside within 10-15 minutes of rest, but with the ongoing chest pressure, she decided to come to the emergency department for further evaluation. Upon arrival, electrocardiogram was done, which showed sinus rhythm , with no significant ST or T-wave abnormalities. Initial troponin done was less than 0.01 and was less than 0.00. Patient states significant past medical history of hypertension. She reports to me, besides having chest pressure for the last 6 weeks, that she has been in her normal state. She denies any orthopnea, PND, edema, palpitations, lightheadedness, near-syncope, or syncopal events. Reports no symptoms suggestive of TIA or CVA. Patient with significant cardiac risk factors that include age, hypertension, and family history of coronary artery disease, but all over the age of 60. PAST MEDICAL HISTORY: Patient states past medical history includes hypertension , and she reported previous history of chronic fatigue, but feels this is resolved. PAST SURGICAL HISTORY: She reports she has had a right hip replacement done 2 years ago, and right knee surgery 1 year ago. FAMILY HISTORY: Patient reports father had a history of hypertension and of a CVA at age 88. Mother of an PR at age 80. SOCIAL HISTORY: She is a homemaker. She never smoked. Rare alcohol intake. She denies any illicit drug use. ALLERGIES: Patient stated allergies of Keflex, latex, penicillin, Seconal, Septra, and narcotics, which can make her vomit. HOME MEDICATIONS: Include [place] Thyroid 60 mg p.o. daily, atenolol 25 mg p.o. h.s., Zofran 4 mg p.o. q.4 hours p.r.n., tramadol 50 mg p.o. q.6 hours p.r.n. REVIEW OF SYSTEMS: A 10-point review of systems done on this patient and all negative, except as mentioned above. PHYSICAL EXAMINATION: GENERAL APPEARANCE: Medium built, mildly obese female. She is alert and oriented to person, place, time, and situation. Appears to be under no acute distress. VITAL SIGNS: Current vital signs are blood pressure of 136/73. Heart rate is 73, sinus rhythm on the monitor. Respirations are 20, saturating 95% on room air. Temperature 36.6 degrees Celsius. HEENT: Head is normocephalic. Lips and tongue are pink and moist, with no signs of cyanosis. Conjunctivae pink. NECK: Trachea is midline , +2 carotid pulses bilateral. No auscultated bruits. No jugular vein distention. RESPIRATORY: Lungs clear to auscultation, no rhonchi, rales or wheezes. No accessory muscle use. No intercostal muscle retraction noted. CARDIAC: Regular rate, regular rhythm, S1, S2, no S3, S4, gallops, rubs or murmurs noted. ABDOMEN: Soft, nontender, bowel sounds x4 quadrants, no organomegaly, no palpable masses. SKIN: [place], warm, dry, no cyanosis, no clubbing, no peripheral edema. VASCULAR: +2 carotids bilateral, +2 radials bilateral, +2 dorsal pedal and posterior tibial pulses bilateral. LABORATORY STUDIES: Labs drawn today showed WBC of 7.88, hemoglobin 14.6, hematocrit of 42.4, platelet count of 294. INR is currently pending. Sodium 137, potassium 4.5, chloride 103, CO2 25, BUN 18, creatinine 0.6, glucose 98, calcium 10.2. Currently, magnesium is pending. Troponin 0.01. STUDIES: Electrocardiogram as mentioned above. Chest x-ray done on admission showing no acute cardiopulmonary process. The patient has brought in a previous Lexiscan MPI study that she had done prior to her most recent surgery in December of 2016, which showed no signs of ischemia or infarction, normal LV systolic function. Echocardiogram has been done upon this admission, preliminary report showing normal LV systolic function with no wall motion abnormality. ASSESSMENT AND PLAN: 1. Chest pressure: Concerning the patient's symptoms as potential acute coronary syndrome, especially with worsening symptoms with exertion and at rest pain (CCS class IV). The patient does have multiple cardiac risk factors. After discussing with Dr. Alvarez concerning placing patient on treadmill with recent worsening of symptoms, has recommended the patient undergo coronary angiogram. Risks and benefits of this procedure were explained to the patient by Dr. Alvarez, in which she verbalizes understanding. We will plan to proceed with this procedure today. 2. Hypertension: Patient with noted history of hypertension, home blood pressures within normal limits. Pending results of catheterization, we will resume her home dosage of medications. 3. History of hypothyroidism, the patient will resume patient's home dosage of thyroid replacement. 4. Hyperlipidemia: Reviewing past laboratory studies drawn 1 year ago, does show LDL 147, pending on results, consideration of starting patient on statin therapy. Plan on repeating fasting lipid panel in a.m.. Thank you for this consultation. We will be glad to follow along with you. Further recommendations will come up post cardiac catheterization. /[id number]/MODL MTDD
[2017-12-08] MEDS ORDERED: BIVALIRUDIN 250 MG/5 ML VIAL IV ONE (13:42)
[2017-12-08] MEDS ORDERED: NITROGLYCERIN 1,500 MCG/15 ML VIAL MISC ONE (13:42)
--- NOTE | 2017-12-08 13:48 | PDDXCAT ---
Diagnostic Cath Note - . Date: 12/08/17 Tools Developer: Antonio Indication: CCC Class III and IV angina on medical treatment - Procedure Access: right groin Procedure: left heart catheterization, left ventriculogram - Materials Left Heart Cath size: 6F Left Heart Cath materials: JL4.0, JR4.0, pigtail, other (6 [place] JL4 guiding catheter and 6 [place] JR4 guiding catheter with side holes) - Findings-Left Heart Catheterization LM: 6mm in size without significant plaque or obstruction. The left main bifurcates into an LAD and circumflex system. FELIZ III flow throughout. LAD: 4mm in size. There is a 99% blockage in this vessel, with FELIZ II flow distal to the lesion. 50% mid LAD and 50% ostial diagonal lesion that I have opted to leave alone given that a repair would likely require bifurcation stenting and the culprit lesion was likely repaired with the proximal LAD stent. The vessel is also quite tortuous distally. LCX: 3.5mm in size with 2 obtuse marginals. The second has a 30% lesion. There is FELIZ III flow throughout the circ OM system. RCA: Dominant vessel. Long diffuse blockage maximal stenosis is 80%. LVEF: 65% Wall motion: On the LV gram there is normal systolic function. The EF is 65%. There are no resting segmental wall motion abnormalities. THe visualized portion of the thoracic aortic valve reveals threes Sinuses of Valsalva most consistent with a trileaflet valve. There is no gradient on pullback across the aortic valve. There is no evidence of sherri dissection or aneurysm formation. Complications: NONE Estimated blood loss: <50ml Closure method: Angioseal Assessment: 2 Vessel coronary disease with critical obstruction of the proximal LAD moderate disease of the mid LAD and diagonal takeoff as noted above. Severe obstruction of the RCA, which is a relatively small but dominant vessel. Plan: Dual antiplatelet therapy with Aspirin 325mg for the first month followed by Aspirin 81mg along with Plavix 75mg daily should be continued for at least 1 year following drug eluting stent implantation. No elective surgery for the first 3 months. Decisions to stop dual antiplatelet therapy before 1 year should involve our office at [facility]. [phone]. Intervention: A 6 [place] JL4 guiding catheter was used for guide catheter support. A 0.014 Intuition wire was advanced across the 99% lesion in the proximal LAD and the vessel was then primarily stented with a 3.0 X 12 Synergy drug eluting stent. There was 0% residual post stent implantation with improvement in flow from FELIZ II to FELIZ III flow post stent implant. The lesion in the mid LAD and diagonal takeoff were elected to be treated medically. A 6 [place] JR4 guiding catheter was used for guide catheter support for intervention of the RCA. A 0.014" Intuition Wire was advanced across the lesion in question under direct fluoroscopic and angiographic guidance. The long lesion in the proximal and mid RCA was then primarily stented with a 2.5X32mm Synergy drug eluting stent. The lesion was 80 percent stenosis pre intervention with FELIZ III flow. There was 0% residual stenosis post stent implantation and FELIZ III flow to the distal vessel post stent implantation. Patient Problems: Problems Problem Status Onset Chest pain Acute Hip arthritis Acute
[2017-12-08] MEDS ORDERED: CLOPIDOGREL BISULFATE 75 MG TAB ONE (14:30)
[2017-12-08] MEDS ORDERED: ATROPINE SULFATE 1 MG/10 ML SYR IVP PRN (14:32)
[2017-12-08] MEDS ORDERED: ONDANSETRON 4 MG/2 ML VIAL IVP PRN (14:32)
[2017-12-08] MEDS ORDERED: CLOPIDOGREL BISULFATE 75 MG TAB PO ONE (14:32)
[2017-12-08] MEDS ORDERED: LORazepam 2 MG/ML INJ IVP PRN (14:32)
--- NOTE | 2017-12-08 15:46 | CPEKG ---
Test Reason : OPEN Blood Pressure : / mmHG Vent. Rate : 076 BPM Atrial Rate : 077 BPM P-R Int : 193 ms QRS Dur : 082 ms QT Int : 410 ms P-R-T Axes : 051 -05 031 degrees QTc Int : 462 ms Sinus rhythm Probable left atrial enlargement Confirmed by Yifan Leon ([id number]) on 12/08/2017 3:46:07 PM Referred By: Confirmed By:Yifan Leon
--- NOTE | 2017-12-08 17:18 | ECHO ---
[email or web address] [address] [address] Main: [phone] Fax: Transthoracic Echocardiogram Name: TAYLOR CASTRO MR#: [id number] Study Date: 12/08/2017 Study Time: 12:23 PM Date of : 1945 Age: 72 year(s) Height: 162.6 cm (64 in.) Weight: 72.12 kg (159 lb.) BSA: 1.77 m2 Gender: Female Examination: Echo Indication: Exertional Chest Pain Image Quality: Contrast: Requested by: Santosh Ramos BP: / Heart Rate: Rhythm: Normal sinus rhythm Indication: Exertional Chest Pain Procedure Staff Center Machine Set Up Operator: Truman Amezquita RDCS Reading Physician: Luther Marino MD Requesting Provider: Conclusions: Normal size left ventricle. Normal global systolic LV function. EF is 70 %. No regional wall motion abnormality. Diastolic dysfunction is present. . Normal size right ventricle. Normal RV function. The left atrium is normal in size. The right atrium is normal in size. No pericardial effusion. Measurements: Chambers Valvular Assessment AV/MV Valvular Assessment TV/PV Normal Normal Normal Name Value Range Name Value Range Name Value Range Ao Kassi (MM): 3.1 cm (2.2 cm-3.7 AV Vmax: 1.33 m/s (1 m/s-1.7 PV Vmax: 0.86 m/s (0.6 m/s-0.9 cm) m/s) m/s) IVSd (2D): 0.8 cm (0.6 cm-1.1 AV maxP mmHg ( - ) PV PGmax: 3 mmHg ( - ) cm) LVOT Vmax: 0.99 m/s (0.7 m/s-1.1 LVDd (2D): 4.3 cm (3.9 cm-5.3 m/s) cm) AR (PHT): 463 ms ( - ) LVDs (2D): 2.6 cm (2.1 cm-4 MV E Vmax: 0.60 m/s ( - ) cm) MV A Vmax: 1.01 m/s ( - ) LVPWd (2D): 0.9 cm ( - ) MV E/A: 0.59 ( - ) LVEF (2D): 70 (>=54 %) Continued Measurements: Chambers Valvular Assessment AV/MV Patient: TAYLOR CASTRO Study Date: 12/08/2017 Page 1 of 2 12:23 PM Name Value Name Value LADs Lon.9 cm MV E/E' Septal: 9.70 LA Area: 15.1 cm2 MV E/E' Lateral: 8.50 LA Volume: 33 ml AR Vmax: 2.39 cm/s LA Volume Index: 18.6 ml/m2 Findings: Left Ventricle: Normal size left ventricle. No LV hypertrophy. Normal global systolic LV function. EF is 70 %. No regional wall motion abnormality. Diastolic dysfunction is present. . Right Ventricle: Normal size right ventricle. Normal RV function. Left Atrium: The left atrium is normal in size. Right Atrium: The right atrium is normal in size. Mitral Valve: Mild mitral valve leaflet calcification is present. Mild mitral annular calcification. There is no mitral valve regurgitation. No mitral stenosis is present. Aortic Valve: The aortic valve is tri-leaflet. The aortic valve is normal in appearance. Trivial aortic valve regurgitation. Tricuspid Valve: The tricuspid valve is normal in appearance and function. Pulmonic Valve: The pulmonic valve is normal in appearance and function. There is no pulmonic regurgitation seen. Aorta: The aorta is normal. Pericardium: No pericardial effusion. (No Signature Object) Patient: TAYLOR CASTRO Study Date: 12/08/2017 Page 2 of 2 12:23 PM [id number]
[2017-12-08] MEDS: FAMOTIDINE 20 MG TAB PO SCH (20:53)
[2017-12-08] MEDS ORDERED: ATENOLOL 25 MG TAB PO SCH (21:00)
[2017-12-09 04:28] LABS: PLATELET COUNT 257 10^3/uL (150-400)
[2017-12-09] MEDS ORDERED: CLOPIDOGREL BISULFATE 75 MG TAB PO SCH (09:00)
[2017-12-09] MEDS ORDERED: ASPIRIN EC 325 MG TAB PO SCH (09:00)
[2017-12-09] MEDS: ATORVASTATIN CALCIUM 40 MG TAB PO SCH ×3 (09:09→11:14)
[2017-12-09] MEDS: FAMOTIDINE 20 MG TAB PO SCH (09:09)
[2017-12-09] MEDS ORDERED: THYROID 60 MG TAB PO SCH (10:00)
--- NOTE | 2017-12-09 11:25 | CPEKG ---
Test Reason : OPEN Blood Pressure : / mmHG Vent. Rate : 084 BPM Atrial Rate : 084 BPM P-R Int : 200 ms QRS Dur : 074 ms QT Int : 373 ms P-R-T Axes : 053 -02 025 degrees QTc Int : 441 ms Sinus rhythm Low voltage, precordial leads Minimal ST/T elevation, consider inferior injury Left atrial enlargement Confirmed by Lincoln Joseph ([id number]) on 12/09/2017 11:24:56 AM Referred By: Confirmed By:Lincoln Joseph
--- NOTE | 2017-12-09 12:36 | ASDISCHSUM ---
Discharge Information Plan Status:Home with No Needs Medically Cleared to Leave:12/09/2017 Discharge Date:12/09/2017 CM D/C Disposition:Home, Routine, Self-Care ADT D/C Disposition:Home, Routine, Self-Care Projected Discharge Date:12/09/2017 Transportation at D/C:Family Discharge Delay Reason: Follow-Up Date:12/09/2017 Discharge Slot: Final Diagnosis:Cardia stent placement Placement Information Patient Contact Information Contact Name:CHEYANNE Relationship: Address:[address] City:[place] Alternate Phone: [facility]/Zip Code:[place] [address] Email: Financial Information Financial Class:Medicare Primary Plan Desc:MEDICARE OUTPATIENT Primary Plan Number:[id number] Secondary Plan Desc: OUT OF STATE [facility] Secondary Plan Number:[id number] Assessment Information LACE LACE Length of stay for Answers: 1 day current admission Acuity / Level of Answers: No Care: Did the patient have an inpatient admission? Comorbidities - select Answers: Opioid dependence all that apply / Chronic pain Other Notes: HTN; Hypothyroid # of Emergency department Answers: 1-2 visits in the last 6 months Score: 7 Date Signed: 12/09/2017 12:33 PM Electronically Signed By:Jessica Bellamy Case Management Discharge Plan Note Case Management Discharge Discharge Order Complete? Answers: Yes Patient to Obtain Answers: via Family Medications Transportation Arranged Answers: Family/Friends Transport will Pick (Date 12/09/2017 02:30 PM & Time) Family Notified Answers: Yes Notes: by pt Discharge Comments Notes: Pt admitted for Chest pain and had cardiac stents placed yesterday. Pt lives in [facility] with and has access to transportation as well as meal support. Pt is comfortable discharging home independently and following up with outpatient cardiac rehab. No further CM needs noted at this time. Date Signed: 12/09/2017 12:36 PM Electronically Signed By:Jessica Bellamy Intervention Information Intervention Type:*MCELROY-Signed Date of Service:12/09/2017 10:14 AM Patient Type:Observation Staff Member:Zahida Donald Hours: Discipline: Severity: Comment:
[2017-12-09 13:06] VITALS: BP 132/63
--- NOTE | 2017-12-09 13:22 | GDS ---
SUPERVISING FOOT DRILL OPERATOR: Dr. Mau Alvarez. ADMISSION DIAGNOSES: 1. Exertional chest pressure. 2. Hypertension. 3. Hyperlipidemia. 4. Hypothyroidism. DISCHARGE DIAGNOSES: 1. Coronary artery disease. 2. Status post percutaneous coronary intervention of left anterior descending artery with a 3.0 x 12 mm Synergy GITA implantation. 3. Status post percutaneous coronary intervention, right coronary artery, with a 2.5 x 32 mm Synergy GITA. 4. Hypertension. 5. Hyperlipidemia. 6. Hypothyroidism. PROCEDURES PERFORMED DURING HOSPITALIZATION: 1. Electrocardiogram. 2. Echocardiogram. 3. Diagnostic left heart catheterization. 4. Percutaneous coronary intervention of the proximal LAD with GITA implantation. 5. Percutaneous coronary intervention of the RCA with GITA implantation. BRIEF HISTORY: Please see H and P. Briefly, the patient is a 72-year-old female. She had been repo rting exertional chest pressure for the last 6 weeks, reporting on the morning of the of waking up at 7 a.m. with midsternal chest pressure, did chew some aspirin and symptoms were relieved. Did, on her walk following the chest pressure, develop a significant midsternal chest pressure with radiat ion into the arms. It was relieved with rest. Came to the emergency department for further evaluati on. HOSPITAL COURSE: Upon arrival to the ED, electrocardiogram was done, showing sinus rhythm, normal ax is, no significant ST or T-wave abnormalities. She was pain free. Initial laboratory studies showed negative troponin level. A stat echocardiogram was done in the ED, noting normal LV systolic functi on with no wall motion abnormalities. EF was estimated at 70%, with diastolic dysfunction, no other significant structural heart disease. Due to her risk factors of age, hypertension, hyperlipidemia, and her symptoms of sounding as exertional angina, concerning that potentially this was ACS. Patient was evaluated by Dr. Alvarez, and it was decided to bring urgently to the cardiac catheterization lab for further evaluation. Upon arrival to the laundry laborer, via right access site, right femoral artery a ccess, diagnostic coronary angiogram was done, showing left main with no significant disease. LAD duque d a 99% blockage in the proximal section. There was noted to be a 50% lesion in the mid LAD. Circum flex was noted to have 2 OMs. Second OM had a 30% lesion, no flow limiting disease. RCA was noted to have a long diffuse mid distal lesion, which was approximately 80% obstructed. LV gram was done, sh owing EF was 65%, with no wall motion abnormalities at rest. At that point, intervention was perform ed, in which Dr. Alvarez successfully implanted a 3.0 x 12 synergy drug-eluting stent into the proxima l LAD. Then intervention performed to the RCA with a 2.5 x 32 mm synergy drug-eluting stent. No appa rent complications. The patient was transferred to the CVC and ultimately to the PCU for overnight o bservation. The patient reports to me today that she has been up and walking on the unit without murali st pain or pressure. She denies any shortness of breath. Has had no palpitations. Denies any light headedness or near-syncope. Continuous cardiac monitoring showing sinus rhythm, with no malignant ar rhythmias or pauses overnight. PHYSICAL EXAMINATION: GENERAL APPEARANCE: Today, medium built female. She is alert, orie ntated to person, place, time, and situation. Appears to be under no acute distress. VITAL SIGNS: Current vital signs are blood pressure of 115/66, heart rate of 75, respirations 18, saturating 94% o n room air, temperature of 36.7 degrees Celsius. HEENT: Head is normocephalic. Lips and tongue are pink and moist, with no signs of cyanosis. Conjunctivae pink. NECK: Trachea is midline, +2 caroti d pulses bilateral. No auscultated bruits, no jugular vein distention. RESPIRATORY: Lungs are wing r to auscultation. No rhonchi, rales or wheezes. No accessory muscle use. No intercostal muscle re traction noted. CARDIAC: Regular rate, regular rhythm, S1, S2, no S3, S4, gallops, rubs or murmurs noted. ABDOMEN: Soft, nontender, bowel sounds x4 quadrants. No organomegaly. No palpable masses. SKIN: [place], warm, dry, no cyanosis, no clubbing, no peripheral edema. VASCULAR: +2 carotids bilat eral, +2 radials bilateral, +2 dorsal pedal and posterior tibial pulses bilateral. Catheter insertio n site, right groin site, with no redness, swelling, drainage, ecchymosis, or hematoma. No auscultat ed bruit noted over site. LABORATORY STUDIES: Laboratory studies drawn today show WBC of 7.71, hemoglobin of 14.0, hematocrit of 41.7, platelet count of 257, sodium 139, potassium 4.4, chloride 106, CO2 28, BUN 13, creatinine 0 .6, glucose 104, calcium 9.7, phosphorus 3.9, magnesium 2.1, total bilirubin 0.5, AST 28, ALT 40, alk daniella phosphatase 57, total protein 6.3, albumin 3.6, triglycerides 131, total cholesterol 193, LDL o f 127, HDL of 40. Also noted TSH of 5.10. STUDIES: Initial electrocardiogram as mentioned above. Echocardiogram as mentioned above. Diagnost ic and percutaneous coronary intervention as mentioned above. DISCHARGE DISPOSITION: Patient will be discharged home in stable condition. She is under activity r estrictions of not lifting more than 10 pounds for the next week and no strenuous activity for the ne xt 2 weeks. DISCHARGE MEDICATIONS: Please see discharge medication reconciliation sheet. Note, patient has been started on dual antiplatelet therapy of aspirin at 325 mg p.o. daily and clopidogrel at 75 mg p.o. d aily. Also, besides her routine home medications, she has also been started on atorvastatin at 40 mg p.o. daily. We will plan on repeating a fasting lipid and liver panel in 6-8 weeks. DISCHARGE INSTRUCTIONS: Post percutaneous coronary intervention discharge instructions went over wit h the patient, including activity restrictions, bleeding precautions, monitoring for signs of infecti ons, and medication compliance. Specifically, a significant amount of time was spent with the oralen t, discussing the importance of dual antiplatelet therapy with GITA implantations. At the time of dis charge, she verbalizes understanding. We also discussed potential adverse reactions to all new medic ations. At the time of discharge, patient and her verbalized understanding of all instructio ns. They report no questions or concerns at this time. The patient has been scheduled for a followu p appointment with Dr. Alvarez scheduled for December 17 at 1:45 p.m. at [facility]. Patient was also noted to have a mildly elevated TSH off the a.m. labs. She has been resumed on h er home dose of thyroid. She has been asked to follow up with her PCP within the next week to 2 to d iscuss further adjustments as necessary. At the time of discharge, both the patient and her verbalized understanding of all discharge instructions and have no questions or concerns. They have been told that if any problems or concerns come up post discharge, they are to notify our office or r eturn to the hospital. Total time spent on discharge: Greater than 30 minutes. /[id number]/MODL
== END 2017-12-09 15:30 | disposition home or self-care (01) ==
LOC: F2W 16:23
PROVIDERS: ADMIT Internal Medicine Cardiovascular Disease; ATTEND Internal Medicine Cardiovascular Disease
DX: I25.10 Atherosclerotic heart disease of native coronary artery without angina pectoris (principal); I10 Essential (primary) hypertension; E78.5 Hyperlipidemia, unspecified; E03.9 Hypothyroidism, unspecified
CPT/HCPCS: 71046; 90471; 90686; 92928; 92929; 93005; 93306; 93458; 99285; C1760; C1769; C1874; C1887; C9600; G0008; G0378; J0583; J1644; J2405; J3010; Q9967; 84484-PO; J2250

== ENCOUNTER 2017-12-10 14:26 | Inpatient (IN) | payer OTHER, BC ==
--- NOTE | 2017-12-10 15:04 | CPEKG ---
Test Reason : OPEN Blood Pressure : / mmHG Vent. Rate : 085 BPM Atrial Rate : 084 BPM P-R Int : 183 ms QRS Dur : 076 ms QT Int : 357 ms P-R-T Axes : 049 -08 024 degrees QTc Int : 425 ms Sinus rhythm Left atrial enlargement Confirmed by Yifan Leon ([id number]) on 12/10/2017 3:03:47 PM Referred By: Confirmed By:Yifan Leon
--- NOTE | 2017-12-10 15:14 | EDPHY ---
H & P Time Seen by Provider: 12/10/17 14:59 HPI/ROS: CHIEF COMPLAINT: Chest tightness HISTORY OF PRESENT ILLNESS: 70-year-old woman had stenting of her right coronary and LAD on December 08 after presenting with exertional chest tightness. This morning she woke up and felt a little bit lightheaded otherwise was normal. Today at around 1:00 p.m. She noticed chest tightness and felt more tired than usual. She chewed an aspirin and an about 1.5 hours her symptoms went away. Not associated with cough or leg swelling or syncope, no nausea or vomiting, no radiation of her chest tightness. REVIEW OF SYSTEMS: Eye: no change in vision ENT: no sore throat Cardiac: HPI Pulmonary: no cough or SOB Abdomen: no vomiting, diarrhea, abdominal pain Musculoskeletal: no back pain Skin: no rash Neuro: no headache Constitutional: no fever : no urinary symptoms A comprehensive 10 point review of systems is otherwise negative aside from elements mentioned in the history of present illness. PAST MEDICAL HISTORY: Includes right hip replacement, hypertension, hypothyroid , cardiac stenting x2 Social history: Nonsmoker General Appearance: Alert and conversant, cooperative. Eyes: No scleral icterus. ENT, Mouth: Normal mucous membranes. Respiratory: Normal respiratory effort, breath sounds equal, lungs are clear to auscultation. Cardiovascular: Regular rate and rhythm. Gastrointestinal: Abdomen is soft and non tender. Neurological: Alert, face symmetric, normal motor and sensory in extremities. Skin: Warm and dry, no rashes. Right groin site shows only 2 small less than 1 cm areas of ecchymosis otherwise normal. Not diaphoretic. Musculoskeletal: No peripheral edema. Psychiatric: Not agitated. Emergency Department course/MDM: EKG does not show acute ST changes. She got a shingles vaccine today but her left arm looks normal. Consult with [facility] 1602: admit Antonio per Rachel. He saw the patient in the emergency department. Smoking Status: Never smoked Constitutional: Initial Vital Signs Temperature (C) 36.7 C 12/10/17 14:31 Heart Rate 88 12/10/17 14:31 Respiratory Rate 18 12/10/17 14:31 Blood Pressure 137/92 H 12/10/17 14:31 O2 Sat (%) 97 12/10/17 14:31 O2 Delivery Mode Room Air Allergies/Adverse Reactions: cephalexin monohydrate [From Keflex] Allergy (Verified 12/08/17 10:57) Hives latex Allergy (Verified 12/08/17 10:57) Rash Penicillins Allergy (Verified 12/08/17 10:57) Hives secobarbital sodium [From Seconal] Allergy (Verified 12/08/17 10:57) Hives sulfamethoxazole [From Septra] Allergy (Verified 12/08/17 10:57) Hives tramadol Allergy (Verified 12/10/17 14:29) trimethoprim [From Septra] Allergy (Verified 12/08/17 10:57) Hives narcotics Allergy (Uncoded 01/07/17 14:05) Vomiting Home Medications: Medication Instructions Recorded Atenolol [Tenormin 25 mg (*)] 25 mg PO HS 12/08/17 Herbals/Supplements -Info Only 1 ea PO DAILY 12/08/17 Thyroid [Gardena Thyroid 60 MG (*)] 60 mg PO DAILY10 12/08/17 Acetaminophen [Tylenol 325mg (*)] 650 mg PO QID PRN tab 12/09/17 Aspirin EC [Aspirin EC 325 mg (*)] 325 mg PO DAILY #0 tab 12/09/17 Atorvastatin Calcium [Lipitor 40 40 mg PO DAILY #30 tab 12/09/17 mg (*)] Clopidogrel Bisulfate [Plavix (*)] 75 mg PO DAILY #30 tab 12/09/17 Nitroglycerin [Nitrostat 0.4 mg 0.4 mg SL Q5M PRN #1 btl 12/09/17 (*)] Medical Decision Making - Diagnostics EKG Interpretation: 12-lead EKG interpreted by me; official reading is in computer system. My interpretation is sinus rhythm rate 85 with left atrial enlargement. No acute ST changes. Differential Diagnosis: Differential diagnosis considered for chest pain including but not limited to myocardial ischemia, aortic dissection, pericarditis, pulmonary embolus, chest wall pain, pleural inflammation and pulmonary infectious causes. Consult/Admit Bed Type: [place] [id number] - Data Points Laboratory Results: Laboratory Results 12/10/17 15:02 12/10/17 15:02 12/10/17 12/10/17 12/10/17 15:06 15:02 15:02 WBC 8.50 10^3/uL 10^3/uL (3.80-9.50) RBC 4.69 10^6/uL 10^6/uL (4.18-5.33) Hgb 14.3 g/dL g/dL (12.6-16.3) Hct 41.6 % % (38.0-47.0) MCV 88.7 fL fL (81.5-99.8) MCH 30.5 pg pg (27.9-34.1) MCHC 34.4 g/dL g/dL (32.4-36.7) RDW 12.5 % % (11.5-15.2) Plt Count 309 10^3/uL 10^3/uL (150-400) MPV 9.3 fL fL (8.7-11.7) Neut % (Auto) 64.0 % % (39.3-74.2) Lymph % (Auto) 21.6 % % (15.0-45.0) [place] % (Auto) 10.2 % % (4.5-13.0) Eos % (Auto) 3.2 % % (0.6-7.6) Baso % (Auto) 0.6 % % (0.3-1.7) Nucleat RBC Rel Count 0.0 % % (0.0-0.2) Absolute Neuts (auto) 5.44 10^3/uL 10^3/uL (1.70-6.50) Absolute Lymphs (auto) 1.84 10^3/uL 10^3/uL (1.00-3.00) Absolute Monos (auto) 0.87 10^3/uL H 10^3/uL (0.30-0.80) Absolute Eos (auto) 0.27 10^3/uL 10^3/uL (0.03-0.40) Absolute Basos (auto) 0.05 10^3/uL 10^3/uL (0.02-0.10) Absolute Nucleated RBC 0.00 10^3/uL 10^3/uL (0-0.01) Immature Gran % 0.4 % % (0.0-1.1) Immature Gran # 0.03 10^3/uL 10^3/uL (0.00-0.10) Sodium 135 mEq/L mEq/L (135-145) Potassium 4.4 mEq/L mEq/L (3.3-5.0) Chloride 99 mEq/L mEq/L (97-110) Carbon Dioxide 27 mEq/l mEq/l (22-31) Anion Gap 9 mEq/L mEq/L (8-16) BUN 23 mg/dL mg/dL (7-23) Creatinine 0.6 mg/dL mg/dL (0.6-1.0) Estimated GFR > 60 Glucose 110 mg/dL H mg/dL (70-100) Calcium 10.2 mg/dL mg/dL (8.5-10.4) POC Troponin I 0.28 ng/mL H ng/mL (0.00-0.08) Point of Care Test Results: Chemistry 12/10/17 15:06 POC Troponin I 0.28 ng/mL H ng/mL (0.00-0.08) Departure - Departure Disposition: [facility] Inpatient Acute Clinical Impression: Chest pain Qualifiers: Chest pain type: unspecified Qualified Code(s): R07.9 - Chest pain, unspecified Condition: Good
[2017-12-10 16:12] LABS: PLATELET COUNT 309 10^3/uL (150-400)
[2017-12-10] MEDS ORDERED: ONDANSETRON 4 MG/2 ML VIAL IVP PRN (16:14)
[2017-12-10] MEDS ORDERED: ONDANSETRON DISINTEGRATING 4 MG TAB PO PRN (16:14)
[2017-12-10] MEDS ORDERED: TEMAZEPAM 15 MG CAP PO PRN (16:20)
--- NOTE | 2017-12-10 17:28 | GHP ---
DATE OF ADMISSION: 12/10/2017 CHIEF COMPLAINT: Mild midsternal chest pressure around noon. HPI: The patient is a 72-year-old female who is known to our practice. She has significant past history that includes coronary artery disease, with recent heart catheterization and percutaneous coronary intervention of the LAD and RCA with GITA implantation, Friday of this week, hypertension, hyperlipidemia, and hypothyroidism. She was discharged yesterday morning from the hospital post procedure. She informed me today that she woke up feeling mildly lightheaded, but denies of any near-syncope or syncopal events. Reporting no palpitations. This lasted for approximately 2-3 minutes, and then dissipated. She proceeded on with her normal daily routines. She does report around noon to 1 o'clock, she developed a mild midsternal chest pressure, similar to what she had prior to her PCI, but saying it is not intense. It was not associated with shortness of breath, radiation, nausea, or diaphoresis. She stated that she chewed 2 aspirin, and symptoms subsided within 5 minutes. She reviewed her paperwork from her discharge, and with these new sign of symptoms, decided to come to the emergency department for further evaluation. Upon arrival, she did have a stat troponin drawn which was noted to be at 0.28. Electrocardiogram was done, shows sinus rhythm, leftward axis, with no significant ST or T-wave abnormalities. In comparison to her electrocardiogram done prior to discharge yesterday, this is unchanged. She reports she is currently pain free. Denies of any shortness of breath, orthopnea, PND, edema, near-syncope or syncopal events. Reports no bleeding issue at catheter insertion site. No signs of infection. Denies of any fevers, chills or night sweats. Reports she has been medication compliant, and has taken both her antiplatelet therapy of aspirin and Plavix today. PAST MEDICAL HISTORY: Hypertension, hypothyroidism, hyperlipidemia, and recently diagnosed CAD with PCI of the proximal LAD and RCA with GITA implantation. PAST SURGICAL HISTORY: Right hip replacement done 2 years ago, right total knee 1 year ago, and as mentioned above, GITA implantation in the LAD and RCA done on Friday of this week. FAMILY HISTORY: Patient reports family history of hypertension, reporting Father of a CVA at age 88. Mother of an [place] at age 80. SOCIAL HISTORY: She is a homemaker, she has never smoked, rarely uses alcohol. Denies any illicit drug use. ALLERGIES: Keflex, latex, penicillin, Sectral, Septra, and narcotics which make her vomit. HOME MEDICATIONS: Leola Thyroid 60 mg p.o. daily, nitroglycerin 0.4 mg sublingual every 5 minutes p.r.n. chest pain, herbs and supplement, clopidogrel 75 mg p.o. daily, atorvastatin 40 mg p.o. daily, Atenolol 25 mg p.o. HS, aspirin 325 mg daily, Tylenol 650 mg p.o. four times daily p.r.n. REVIEW OF SYSTEMS: A 10-point review of systems done on patient, all negative except as mentioned above. PHYSICAL EXAMINATION: GENERAL APPEARANCE: Medium built, mildly obese, female. She is alert and oriented to person, place, time, situation. Appears to be under no acute distress. CURRENT VITAL SIGNS: Blood pressure is 137/92, heart rate of 88, sinus rhythm on the monitor, respirations 18, saturating 97% on room air. Temperature 36.7 degrees Celsius. HEENT: Head is normocephalic. Lips and tongue are pink and moist with no signs of cyanosis. NECK: Trachea is midline, +2 carotid pulses bilateral. No auscultated bruits, no jugular vein distention. RESPIRATORY: Lungs are clear to auscultation, no rhonchi, rales or wheezes. No accessory muscle use. No intercostal muscle retraction. CARDIAC: Regular rate, regular rhythm, S1, S2. No S3, S4, gallops , rubs or murmurs noted. ABDOMEN: Soft, nontender, bowel sounds x4 quadrants. No organomegaly. No palpable masses. SKIN: [place], warm, dry, no cyanosis, no clubbing, no peripheral edema. VASCULAR: +2 carotids bilateral, +2 radials bilateral, +2 dorsal pedal and posterior tibial pulses bilateral. GROIN SITE: Right groin site, with no redness, swelling, drainage, ecchymosis, or hematoma. LABORATORY STUDIES: Laboratory studies drawn today show WBC of 8.50, hemoglobin of 14.3, hematocrit of 41.6, platelet count 309. Sodium 135, potassium 4.4, chloride 99, CO2 27, BUN 23, creatinine 0.6, glucose 110, calcium 10.2. Troponin of 0.28. IMAGING: Electrocardiogram as mentioned above. Limited echocardiogram preliminary report showing no LV wall motion abnormality. ASSESSMENT AND PLAN: 1. Chest pain: 72-year-old female with known history of coronary artery disease with recent percutaneous coronary intervention with GITA implantation of proximal left anterior descending and right coronary artery. Reporting mild midsternal chest pressure this afternoon, which dissipated within 5 minutes. Limited echocardiogram showing no left ventricular wall motion abnormality, noted mildly elevated troponin at 0.28. The patient is currently pain free. She reports she has been compliant with her dual antiplatelet therapy. Potentially, troponin could be elevated due to recent percutaneous coronary intervention. Her electrocardiogram is unchanged. At this time, we will plan on admitting her to the hospital, we will cycle troponin levels throughout the night, and monitor her on telemetry. We will continue her on dual antiplatelet therapy of aspirin and clopidogrel. She has been ordered sublingual nitroglycerin. Pending on results of troponin level, make consideration of repeating angiogram tomorrow to re-evaluate coronary arteries. Repeat electrocardiogram in the a.m. Continue home dose beta-peter, atenolol. 2. Lightheadedness: Patient stated waking up this morning with mild lightheadedness, which subsided within a few minutes. Eldred this happened when she stood. Will plan on her having orthostatic blood pressures done. Laboratory studies drawn today showing no significant anemia, normal electrolyte renal function. 3. Hypertension: Patient with noted history of hypertension, mildly elevated today, will continue home atenolol, adjust as necessary. 4. Hyperlipidemia: Patient recently started on atorvastatin, will continue home dosage. 5. Hypothyroidism, will continue patient on home dose Leola Thyroid. 6. Deep venous thrombosis prophylaxis: Due to the patient potentially needing cardiac catheterization in the next 24 hours, we will hold off on starting her on Lovenox, continue dual antiplatelet therapy, ARELY hoses as ordered. 7. Code status: Patient is considered a full code. /[id number]/MODL MTDD
[2017-12-10] MEDS ORDERED: NITROGLYCERIN 0.4 MG BTL SL PRN (18:04)
--- NOTE | 2017-12-10 18:21 | ECHO ---
[email or web address] [address] [address] Main: [phone] Fax: Transthoracic Echocardiogram Name: TAYLOR CASTRO MR#: [id number] Study Date: 12/10/2017 Study Time: 04:11 PM Date of : 1945 Age: 72 year(s) Height: 162.6 cm (64 in.) Weight: 72.58 kg (160 lb.) BSA: 1.78 m2 Gender: Female Examination: Limited Echo Indication: sp, recent stent Image Quality: Adequate Contrast: Requested by: Santosh Ramos BP: 135 mmHg/78 mmHg Heart Rate: Rhythm: Indication: sp, recent stent Procedure Staff Shipping Processor: Luciana Rivera [facility] Reading Physician: Luther Marino MD Requesting Provider: Conclusions: Normal size left ventricle. Normal global systolic LV function. The ejection fraction is visually estimated to be 65 %. No regional wall motion abnormality. Normal size right ventricle. Normal RV function. No pericardial effusion. Measurements: Chambers Valvular Assessment AV/MV Valvular Assessment TV/PV Normal Normal Normal Name Value Range Name Value Range Name Value Range Visual EF: 65 % Continued Measurements: Findings: Left Ventricle: Normal size left ventricle. Normal global systolic LV function. The ejection fraction is visually estimated to be 65 %. No regional wall motion abnormality. Right Ventricle: Normal size right ventricle. Normal RV function. Mitral Valve: The mitral valve is normal in appearance and function. Mild mitral valve regurgitation is present. No mitral stenosis is present. Aortic Valve: The aortic valve is tri-leaflet. Mild aortic valve regurgitation is present. Tricuspid Valve: Patient: TAYLOR CASTRO Study Date: 12/10/2017 Page 1 of 2 04:11 PM The tricuspid valve is normal in appearance and function. Mild tricuspid regurgitation is present. Pericardium: No pericardial effusion. (No Signature Object) Patient: TAYLOR CASTRO Study Date: 12/10/2017 Page 2 of 2 04:11 PM [id number]
[2017-12-10] MEDS: ATENOLOL 25 MG TAB PO SCH (20:06)
[2017-12-10] MEDS: MELATONIN 3 MG TAB PO PRN (21:28)
[2017-12-11] MEDS: ASPIRIN EC 325 MG TAB PO SCH (09:23)
[2017-12-11] MEDS: THYROID 60 MG TAB PO SCH (09:23)
[2017-12-11] MEDS: CLOPIDOGREL BISULFATE 75 MG TAB PO SCH (09:23)
[2017-12-11] MEDS: ATORVASTATIN CALCIUM 40 MG TAB PO SCH (09:23)
[2017-12-11] MEDS ORDERED: DIAZEPAM 5 MG TAB PO ONE (09:51)
[2017-12-11] MEDS ORDERED: FAMOTIDINE 20 MG TAB PO ONE (09:51)
[2017-12-11] MEDS ORDERED: diphenhydrAMINE 25 MG CAP PO ONE (09:51)
[2017-12-11] MEDS ORDERED: NS 1,000 ML IV SCH ×2 (10:00→12:45)
[2017-12-11] MEDS ORDERED: fentaNYL 100 MCG/2 ML INJ ONE ×2 (10:15→11:29)
[2017-12-11] MEDS ORDERED: LIDOCAINE 1% 300 MG/30 ML SDV ONE (10:15)
[2017-12-11] MEDS ORDERED: IOPAMIDOL (ISOVUE-370) 150 ML BTL IV ONE (10:15)
[2017-12-11] MEDS ORDERED: MIDAZOLAM 2 MG/2 ML VIAL ONE ×3 (10:15→12:09)
--- NOTE | 2017-12-11 10:29 | PDPROPOC ---
Sedation Plan of Care Sedation Plan of Care: vital signs stable, mental status noted, patient educated of risks, benefits, alternatives, patient can tolerate sedation ASA Classification: ASA 2 Planned drugs: fentanyl, midazolam Mallampati Score: Class 2 Mallampati Reference Image: Patient passed 3-3-2 rule?: Yes
[2017-12-11] MEDS ORDERED: ONDANSETRON 4 MG/2 ML VIAL ONE (11:03)
[2017-12-11] MEDS ORDERED: BIVALIRUDIN 250 MG/5 ML VIAL IV ONE (11:46)
[2017-12-11] MEDS ORDERED: NITROGLYCERIN 1,500 MCG/15 ML VIAL MISC ONE (11:59)
--- NOTE | 2017-12-11 12:25 | CPEKG ---
Test Reason : OPEN Blood Pressure : / mmHG Vent. Rate : 078 BPM Atrial Rate : 079 BPM P-R Int : 185 ms QRS Dur : 080 ms QT Int : 379 ms P-R-T Axes : 056 -11 033 degrees QTc Int : 432 ms Sinus rhythm Probable left atrial enlargement Confirmed by Lincoln Joseph ([id number]) on 12/11/2017 12:24:55 PM Referred By: Confirmed By:Lincoln Joseph
[2017-12-11] MEDS ORDERED: ATROPINE SULFATE 1 MG/10 ML SYR IVP PRN (12:42)
[2017-12-11] MEDS ORDERED: CLOPIDOGREL BISULFATE 75 MG TAB PO ONE (12:42)
[2017-12-11] MEDS ORDERED: CLOPIDOGREL BISULFATE 75 MG TAB ONE (12:48)
--- NOTE | 2017-12-11 13:12 | ASMTCASEMG ---
Living Arrangements What is your living Answers: With Spouse arrangement? Who do you live with? Type Of Residence What kind of residence do Answers: House you live in? Discharge Plan Comments Coordination Status Comments Notes: Pt is a 72 y/o female admitted for chest pain. Pt will most likely d/c independent when medically stable. No therapies ordered at this time. Pt is being followed by transitional care. CM available for changes. Plan: Independent Date Signed: 12/11/2017 01:11 PM Electronically Signed By:TRAVON Brady
--- NOTE | 2017-12-11 13:20 | CPEKG ---
Test Reason : OPEN Blood Pressure : / mmHG Vent. Rate : 060 BPM Atrial Rate : 060 BPM P-R Int : 190 ms QRS Dur : 081 ms QT Int : 416 ms P-R-T Axes : 053 001 025 degrees QTc Int : 416 ms Sinus rhythm Confirmed by Lincoln Joseph ([id number]) on 12/11/2017 1:19:45 PM Referred By: Confirmed By:Lincoln Joseph
--- NOTE | 2017-12-11 13:33 | CPIP ---
DATE OF PROCEDURE: 12/11/2017 PROCEDURE PERFORMED: 1. Coronary catheterization. 2. Selective coronary angiography. 3. Intravascular ultrasound of the left anterior descending. 4. Percutaneous transluminal coronary angioplasty and stent placement of the mid left anterior desce nding with a 2.75 x 28 Synergy drug-eluting stent, with an overlapping stent to the previously stente d proximal left anterior descending with the use of a 3.0 x 24 Synergy drug-eluting stent. This was a left groin approach with a manual hold arteriotomy repair. COMPLICATIONS: None. RIBBING MACHINE OPERATOR: Mau Alvarez MD INDICATIONS/APPROPRIATE USE CRITERIA: The patient underwent PTCA and stent placement of the proximal LAD and of the proximal and mid RCA with 2 separate stents earlier this week. She returned to the h ospital with chest pressure and tightness, and was noted to have a rising troponin with laboratory va lues of 0.28, 0.302, and then 0.333 this morning. Because of these findings, we felt it was importan t that we proceed with further evaluation of the patient's heart circulation to see if there were pro blems with either of the stents. Her diagnosis is CCS class 4 angina on medical management with incr easing isoenzyme markers of myocardial injury. PROCEDURE IN DETAIL: After informed consent was obtained, n.p.o. status was confirmed, the region of the left groin was cleaned, prepped, and draped in sterile fashion. A micropuncture set was used to gain access to the left profunda femoral artery, and a 6-Spanish sheath was placed over a standard J- wire. The patient underwent diagnostic angiography with the use of a 5-Spanish JL4 diagnostic cathete r, as well as a 5-Spanish JL3.5 diagnostic catheter. The left main coronary lumen is approximately 7 mm in size with a 30% ostial stenosis near its takeof f from the left coronary cusp. It bifurcates into an LAD and circumflex system. The proximal LAD duque s been previously stented and is somewhat shaggy and hazy in its appearance, possibly consistent with a partial subacute stent thrombosis. The left circumflex is a 3.5 vessel giving rise to multiple ob tuse marginal branches, and is unchanged from prior angiography earlier this week. The right coronar y artery and stent are widely patent with 0% residual stenosis and a very good-looking early stent re sult. Because of the hazy appearance of the previously placed LAD stent, we proceeded with a plan fo r intravascular ultrasound of the LAD. The sheath was switched for a 7-Spanish sheath. A 7-Spanish 3. 5 CLS catheter was used for guide catheter support. A 0.014 Intuition wire was advanced across the l esion in question, and also across the lesion which was angiographically 50-60 percent in the mid LAD . Intravascular ultrasound was then accomplished. The lesion which was thought to be 50 to 60 perce nt in the mid LAD at the level of the 2nd diagonal take-off was found to be 72% stenosed. There were also luminal irregularities within the stent consistent with possible partial thrombus of the distal edge of the stent, and it was not as well apposed as I would have liked to the vessel wall. For jerson t reason, we elected to stent the mid LAD because of the flow-limiting obstruction downstream from th e originally placed stent. Ultimately, a 0.014 wiggle wire was used for stent support, and was advan mia across the lesion under direct fluoroscopic and angiographic guidance. A 2.75 x 28 Synergy drug- eluting stent was used to stent the vessel, with good angiographic results, 72% stenosis pre stent an d 0% residual stenosis post stent implantation. There was evidence of some plaque migration into the intervening segment. There appeared to be a 50 to 60 percent stenosis between the 2 stents, and an overlapping and 3rd stent was placed, which was a 3.0 x 24 Synergy drug-eluting stent and was deploye d at high pressure with a maximum inflation of 20 atmospheres in the proximal segment. Subsequent an giography documented 0% residual stenosis. Both the diagonal branches which were crossed still had T IMI-3 flow post stent implantation, with an expected ostial oint pinch caused by the stent deployment s in both the first and 2nd diagonal. There was excellent and FELIZ-3 flow to the distal vessel with 0% residual stenosis status post PTCA and stent placement, and again improvement in the angiographic appearance of the entire vessel. FINAL IMPRESSION: Successful intravascular ultrasound of the left anterior descending and subsequent stent implantation for flow-limiting obstruction of the mid left anterior descending by IVUS and rep air of the distal margin of the previously placed stent earlier this week. /[id number]/MODL
[2017-12-11] MEDS: ACETAMINOPHEN 325 MG TAB PO PRN ×2 (15:49→22:08)
--- NOTE | 2017-12-11 17:17 | PDMN ---
Medical Necessity Medical necessity: Pt meets INPT criteria per MD as of 12/11/17 and [facility] M-52 Angioplasty, PCI (est. LOS >2 MN for ongoing eval/mgmt of chest pain with successful IVUS and stent implantation for flow-limiting obstruction of the mid LAD).
[2017-12-11] MEDS: MELATONIN 3 MG TAB PO PRN (20:40)
[2017-12-11] MEDS: ATENOLOL 25 MG TAB PO SCH (20:40)
[2017-12-12] MEDS: THYROID 60 MG TAB PO SCH (08:46)
[2017-12-12] MEDS: ATORVASTATIN CALCIUM 40 MG TAB PO SCH (08:46)
[2017-12-12] MEDS: CLOPIDOGREL BISULFATE 75 MG TAB PO SCH (08:46)
[2017-12-12] MEDS: ASPIRIN EC 325 MG TAB PO SCH (08:46)
--- NOTE | 2017-12-12 08:56 | CPEKG ---
Test Reason : OPEN Blood Pressure : / mmHG Vent. Rate : 078 BPM Atrial Rate : 079 BPM P-R Int : 186 ms QRS Dur : 082 ms QT Int : 358 ms P-R-T Axes : 058 010 027 degrees QTc Int : 408 ms Sinus rhythm Probable left atrial enlargement Low voltage, precordial leads Confirmed by Tejinder Hall ([id number]) on 12/12/2017 8:55:50 AM Referred By: Confirmed By:Tejinder Hall
[2017-12-12] MEDS ORDERED: MAGNESIUM SULF 1 GM/DEXTROSE 100 ML IV ONE (09:45)
--- NOTE | 2017-12-12 11:03 | ASDISCHSUM ---
Discharge Information Plan Status:Home with No Needs Medically Cleared to Leave:12/12/2017 Discharge Date:12/12/2017 CM D/C Disposition:Home, Routine, Self-Care ADT D/C Disposition:Home, Routine, Self-Care Projected Discharge Date:12/12/2017 Transportation at D/C: Discharge Delay Reason: Follow-Up Date:12/12/2017 Discharge Slot: Final Diagnosis: Placement Information Patient Contact Information Contact Name:CHEYANNE Relationship:Yamile Address:[address] City:[place] Alternate Phone: [facility]/Zip Code:[place] [address] Email: Financial Information Financial Class:Medicare Primary Plan Desc:MEDICARE INPATIENT Primary Plan Number:[id number] Secondary Plan Desc: OUT OF STATE [facility] Secondary Plan Number:[id number] Assessment Information LACE LACE Length of stay for Answers: Less than 1 day current admission Acuity / Level of Answers: No Care: Did the patient have an inpatient admission? Comorbidities - select Answers: Coronary Artery Disease all that apply Opioid dependence / Chronic pain Other Notes: HTN; Hypothyroid # of Emergency department Answers: 1-2 visits in the last 6 months Score: 8 Date Signed: 12/12/2017 11:01 AM Electronically Signed By:Mirna Knowles RN [facility] Initial CM Assessment Living Arrangements What is your living Answers: With Spouse arrangement? Who do you live with? Type Of Residence What kind of residence do Answers: House you live in? Discharge Plan Comments Coordination Status Comments Notes: Pt is a 72 y/o female admitted for chest pain. Pt will most likely d/c independent when medically stable. No therapies ordered at this time. Pt is being followed by transitional care. CM available for changes. Plan: Independent Date Signed: 12/11/2017 01:11 PM Electronically Signed By:TRAVON Brady Case Management Discharge Plan Note Case Management Discharge Discharge Order Complete? Answers: Yes Patient to Obtain Answers: Independently Medications Discharge Comments Notes: 12/12/2017 Case Management Note Pt to discharge independent with follow up as directed. Date Signed: 12/12/2017 11:02 AM Electronically Signed By:Mirna Knowles RN Intervention Information Intervention Type:MCELROY-Not Delivered Date of Service:12/11/2017 03:12 PM Patient Type:Observation Staff Member:Zahida Donald Hours: Discipline: Severity: Comment:Patient was taken down for an interven tional cardiac procedure this morning around 10am and has not yet returned to her room. Unable to complete MCELROY form.
[2017-12-12 11:09] VITALS: BP 131/69
--- NOTE | 2017-12-12 12:17 | GDS ---
ADMISSION DIAGNOSES: 1. Chest pain. 2. Coronary artery disease. 3. Hypertension. 4. Hypothyroidism. 5. Hyperlipidemia. DISCHARGE DIAGNOSES: 1. Coronary artery disease. 2. Previous percutaneous coronary intervention with drug-eluting stent implantation into the proxima l left anterior descending and right coronary artery, done on December 08, 2017. 3. Status post percutaneous coronary intervention to the mid distal left anterior descending with 2 drug-eluting stents implantation, on December 11, 2017. 4. Hypertension. 5. Hyperlipidemia. 6. Hypothyroidism. PROCEDURES PERFORMED DURING HOSPITALIZATION: 1. Electrocardiogram. 2. Selective coronary angiogram. 3. Intravascular ultrasound of the left anterior descending artery. 4. Percutaneous coronary angioplasty with a 2.75 x 28 in mid distal left anterior descending and a 3 .0 x 24 Synergy drug-eluting stent implantation into the proximal left anterior descending. HISTORY OF PRESENT ILLNESS: Please see H and P. Briefly, the patient is a 72-year-old female with r ecent admission for exertional angina. She did undergo diagnostic coronary catheterization on , finding a significantly tight proximal LAD lesion and mid RCA lesion. Both were fixed during that visit. She was discharged home on the . The patient reports on December 11, waking up wi th midsternal chest pressure. She returned to the hospital for further evaluation. Upon arrival, sh e had no significant EKG changes. A limited echocardiogram was done which noted normal LV systolic f unction with EF of 65% with no regional wall motion abnormalities. Initial laboratory studies did no te a mild troponin bump of 0.28. She was admitted to the PCU for overnight observation. HOSPITAL COURSE: Upon arrival to the PCU, she maintained in sinus rhythm. She did report mild chest pressure during the night of December 10 through suspect artist of December 11. Repeated troponin levels throughout the night did show a continuous elevation of troponin of 0.33. At that point, due to this, it was decided to take her back to the cardiac catheterization lab for further evaluation on the . In the cardiac laborer bituminous paving, Dr. Alvarez performed a diagnostic heart catheterization. Findin gs were left main was approximately 7 mm with a 30% ostial lesion in her takeoff from the left clarke ry cusp; proximal LAD with previous stent which appeared somewhat shaggy and hazy in appearance, poss ibly consistent with partial subacute stent thrombosis; the circumflex was a 3/5 vessel, giving rise to multiple obtuse marginals and was unchanged; right coronary artery with previous stent was patent with no residual stenosis. At that point, an intravascular ultrasound was performed by Dr. Alvarez in which a mid LAD lesion was reviewed and was noted to have a 72% stenosis. At that time, it was decided to perform percutaneous coronary intervention. Initially a 2.75 x 28 Sy nergy drug-eluting stent was placed in the mid distal LAD, followed by a 3.0 x 24 Synergy between pre vious stent and new stent in the mid section. No apparent complications. The patient was taken back to the CVC and ultimately to the PCU for overnight observation. There, she has been maintaining sin us rhythm. She reports no further episodes of chest pain or pressure. Continuous cardiac monitoring showing sinus rhythm with an occasional PVC. No other malignant arrhythmias or pauses noted. She h as been up and walking the unit without symptoms. PHYSICAL EXAMINATION: GENERAL APPEARANCE: Today, medium-built, well-groomed female. She is alert and oriented to person, place, time, and situation. Appears to be under no acute distress. VITAL SIGNS: Current blood pressure of 131/69, heart rate is 75, respirations are 15, saturating 95 % on room air, temperature at 36.6 degrees Celsius. HEENT: Head is normocephalic. Lips and tongue are pink and moist with no signs of cyanosis. Conjunctivae pink. NECK: Trachea is midline, +2 pro tid pulses bilateral. No auscultated bruits, no jugular vein distention. RESPIRATORY: Lungs are cl ear to auscultation. No rhonchi, rales, or wheezes. No accessory muscle use. No intercostal muscle retraction noted. CARDIAC: Regular rate, regular rhythm, S1 and S2. No S3, S4, gallops, rubs, or murmurs noted. ABDOMEN: Soft, nontender, bowel sounds x4 quadrants. No organomegaly, no palpable m asses. SKIN: [place], warm, and dry. No cyanosis, no clubbing, no peripheral edema. VASCULAR: +2 ca rotids bilateral, +2 radials bilateral, +2 dorsal pedal and posterior tibial pulses bilateral. EXTRE MITIES: Catheter insertion site: Previous catheter insertion site on December 08 in right groin wi th no redness, swelling, drainage, or ecchymosis. Most recent catheterization site in left groin wit h no redness, swelling, drainage, or ecchymosis. No auscultated bruit over site. Normal CMS checks to both lower extremities. LABORATORY STUDIES: Drawn today show WBCs of 8.23, hemoglobin of 13.8, hematocrit of 40.5, platelet count of 280. Sodium 134, potassium 4.5, chloride 103, CO2 23, BUN 10, creatinine 0.5, glucose 129, calcium 9.6, magnesium 1.8. Currently pending genetic testing for evaluation to see if the patient i s an adequate metabolizer of clopidogrel. DIAGNOSTIC STUDIES: Limited echocardiogram as mentioned above. Diagnostic heart catheterization, IV US, and percutaneous coronary intervention as above. ELECTROCARDIOGRAM: Today showing sinus rhythm, normal axis. No significant ST or T-wave abnormaliti es. DISCHARGE DISPOSITION: The patient will be discharged home in stable condition. She is under activi ty restriction that includes not picking up more than 10 pounds for the next week and no strenuous ac tivity for the next 2 weeks. DISCHARGE MEDICATIONS: Please see discharge medication reconciliation sheet. Note, the patient will continue on dual antiplatelet therapy. Due to possible mild subacute thrombosis in recent stent, sh e will be changed from clopidogrel to Effient 10 mg p.o. q. day. No change in the rest of her home m edications. DISCHARGE INSTRUCTIONS: Post percutaneous coronary intervention discharge instructions gone over wit h the patient and her family including monitoring for signs of infection, bleeding precautions, activ ity restrictions, and medication compliancy. At the time of discharge, the patient, the patient's hu sband, and daughter verbalized understanding and have no questions or concerns. [facility] week. She was also advised to follow up with her PCP. Last admission noted to have a mildly elevated TSH level. The patient has been told that if any pr oblems or concerns come up post discharge, they are to come back to the hospital or call our office. Total time spent on discharge greater than 30 minutes. /[id number]/MODL
== END 2017-12-12 11:57 | disposition home or self-care (01) | DRG 247 ==
LOC: F2W 18:09 → OBSVTOIN 12-11 14:40
PROVIDERS: ADMIT Internal Medicine Cardiovascular Disease; ATTEND Internal Medicine Cardiovascular Disease
PROC: B2151ZZ Fluoroscopy of Left Heart using Low Osmolar Contrast (ICD-10-PCS; principal; 2017-12-11)
PROC: 027035Z Dilation of Coronary Artery, One Artery with Two Drug-eluting Intraluminal Devices, Percutaneous Approach (ICD-10-PCS; principal; 2017-12-11)
PROC: 4A023N7 Measurement of Cardiac Sampling and Pressure, Left Heart, Percutaneous Approach (ICD-10-PCS; principal; 2017-12-11)
PROC: B2111ZZ Fluoroscopy of Multiple Coronary Arteries using Low Osmolar Contrast (ICD-10-PCS; principal; 2017-12-11)
PROC: B240ZZ3 Ultrasonography of Single Coronary Artery, Intravascular (ICD-10-PCS; principal; 2017-12-11)
DX: I25.119 Atherosclerotic heart disease of native coronary artery with unspecified angina pectoris (principal); I10 Essential (primary) hypertension; E03.9 Hypothyroidism, unspecified; E78.5 Hyperlipidemia, unspecified; Z23 Encounter for immunization
CPT/HCPCS: 84484-PO; C1753; C1760; C1769; C1874; C1887; C9600; G0008; G0378; J0461; J0583; J1644; J2250; J2405; J3010; Q9967

== ENCOUNTER → 2017-12-12 | Outpatient (CLI) | payer OTHER, BC | LOC: FIMAGING 17:00 | PROVIDERS: ATTEND Nurse Practitioner Family | DX: R10.31 Right lower quadrant pain (principal); Z96.0 Presence of urogenital implants ==

== ENCOUNTER 2017-12-24 15:07 | Observation (INO) | payer OTHER, BC ==
--- NOTE | 2017-12-24 15:15 | EDPHY ---
H & P Time Seen by Provider: 12/24/17 15:12 HPI/ROS: CHIEF COMPLAINT: Chest pain HISTORY OF PRESENT ILLNESS: Patient has history of LAD and RCA stenting with 2 separate trips to the catheterization lab in November of this year. She is on aspirin and prasugrel and took both of those today. She was leaving the slubber tender at 2:30 p.m. Today after getting an appointment for her left heel pain when she developed chest pain, midsternal chest pressure which today radiated to her jaw. She said it was similar to her previous chest pain prior to stenting but that was actually worse in intensity today. Better after she took 2 of her own nitroglycerin, arrives by EMS, currently asymptomatic, symptoms lasted about 30 min. REVIEW OF SYSTEMS: Eye: no change in vision ENT: no sore throat Cardiac: HPI Pulmonary: no cough or SOB Abdomen: no vomiting, diarrhea, abdominal pain Musculoskeletal: Ongoing left heel pain Skin: no rash Neuro: no headache Constitutional: no fever : no urinary symptoms A comprehensive 10 point review of systems is otherwise negative aside from elements mentioned in the history of present illness. PAST MEDICAL HISTORY: Includes LAD and RCA stenting, hypertension, hypothyroid , hyperlipidemia. Right hip and knee replacement. Social history: Nonsmoker, patient of Dr. Alvarez. 135/86 General Appearance: Alert and conversant, cooperative. Eyes: No scleral icterus. ENT, Mouth: Normal mucous membranes. Respiratory: Normal respiratory effort, breath sounds equal, lungs are clear to auscultation. Cardiovascular: Regular rate and rhythm. Gastrointestinal: Abdomen is soft and non tender. Neurological: Alert, face symmetric, normal motor and sensory in extremities. Skin: Warm and dry, no rashes. Musculoskeletal: No peripheral edema. Psychiatric: Not agitated. Emergency Department course/MDM: EKG personally reviewed does not show acute ST changes. She took aspirin already today. Plan for troponin and called her metal tile setter. Smoking Status: Never smoked Constitutional: Initial Vital Signs Temperature (C) 36.7 C 12/24/17 15:18 Heart Rate 88 12/24/17 15:18 Respiratory Rate 18 12/24/17 15:18 O2 Sat (%) 95 12/24/17 15:18 O2 Delivery Mode Room Air Allergies/Adverse Reactions: cephalexin monohydrate [From Keflex] Allergy (Verified 12/24/17 15:14) Hives latex Allergy (Verified 12/24/17 15:14) Rash Penicillins Allergy (Verified 12/24/17 15:14) Hives secobarbital sodium [From Seconal] Allergy (Verified 12/24/17 15:14) Hives sulfamethoxazole [From Septra] Allergy (Verified 12/24/17 15:14) Hives tramadol Allergy (Verified 12/24/17 15:14) trimethoprim [From Septra] Allergy (Verified 12/24/17 15:14) Hives narcotics Allergy (Uncoded 01/07/17 14:05) Vomiting Home Medications: Medication Instructions Recorded Atenolol [Tenormin 25 mg (*)] 25 mg PO HS 12/08/17 Herbals/Supplements -Info Only 1 ea PO DAILY 12/08/17 Thyroid [[place] Thyroid 60 MG (*)] 60 mg PO DAILY 12/08/17 Acetaminophen [Tylenol 325mg (*)] 650 mg PO QID PRN tab 12/09/17 Aspirin EC [Aspirin EC 325 mg (*)] 325 mg PO DAILY #0 tab 12/09/17 Atorvastatin Calcium [Lipitor 40 40 mg PO DAILY #30 tab 12/09/17 mg (*)] Nitroglycerin [Nitrostat 0.4 mg 0.4 mg SL Q5M PRN #1 btl 12/09/17 (*)] Melatonin [Melatonin 3 MG (*)] 3 mg PO HS PRN tab 12/12/17 Prasugrel HCl 10 mg PO DAILY #30 tablet 12/12/17 Medical Decision Making - Diagnostics EKG Interpretation: 12-lead EKG interpreted by me; official reading is in computer system. My interpretation is sinus rhythm rate 86 with normal intervals and no ischemic changes. Imaging Results: Imaging Impressions Chest X-Ray 12/24/17 15:17 Impression: Coronary stents are present. Otherwise negative. Imaging: I viewed and interpreted images myself Differential Diagnosis: Differential diagnosis considered for chest pain including but not limited to myocardial ischemia, aortic dissection, pericarditis, pulmonary embolus, chest wall pain, pleural inflammation and pulmonary infectious causes. Consult/Admit Bed Type: Adilson Jaramillo for Antonio 1532, in ED to see patient at 1545 - Data Points Laboratory Results: Laboratory Results 12/24/17 15:15 12/24/17 15:15 12/24/17 12/24/17 12/24/17 15:16 15:15 15:15 WBC RBC Hgb Hct MCV MCH MCHC RDW Plt Count MPV Neut % (Auto) Lymph % (Auto) [place] % (Auto) Eos % (Auto) Baso % (Auto) Nucleat RBC Rel Count Absolute Neuts (auto) Absolute Lymphs (auto) Absolute Monos (auto) Absolute Eos (auto) Absolute Basos (auto) Absolute Nucleated RBC Immature Gran % Immature Gran # Sodium 135 mEq/L mEq/L (135-145) Potassium 4.4 mEq/L mEq/L (3.3-5.0) Chloride 99 mEq/L mEq/L (97-110) Carbon Dioxide 25 mEq/l mEq/l (22-31) Anion Gap 11 mEq/L mEq/L (8-16) BUN 19 mg/dL mg/dL (7-23) Creatinine 1.0 mg/dL mg/dL (0.6-1.0) Estimated GFR 55 Glucose 112 mg/dL H mg/dL (70-100) Calcium 10.0 mg/dL mg/dL (8.5-10.4) POC Troponin I 0.00 ng/mL ng/mL (0.00-0.08) Troponin I Pending 12/24/17 15:15 WBC 8.44 10^3/uL 10^3/uL (3.80-9.50) RBC 4.50 10^6/uL 10^6/uL (4.18-5.33) Hgb 13.7 g/dL g/dL (12.6-16.3) Hct 39.9 % % (38.0-47.0) MCV 88.7 fL fL (81.5-99.8) MCH 30.4 pg pg (27.9-34.1) MCHC 34.3 g/dL g/dL (32.4-36.7) RDW 12.6 % % (11.5-15.2) Plt Count 324 10^3/uL 10^3/uL (150-400) MPV 9.2 fL fL (8.7-11.7) Neut % (Auto) 49.3 % % (39.3-74.2) Lymph % (Auto) 34.4 % % (15.0-45.0) [place] % (Auto) 9.6 % % (4.5-13.0) Eos % (Auto) 5.6 % % (0.6-7.6) Baso % (Auto) 0.7 % % (0.3-1.7) Nucleat RBC Rel Count 0.0 % % (0.0-0.2) Absolute Neuts (auto) 4.17 10^3/uL 10^3/uL (1.70-6.50) Absolute Lymphs (auto) 2.90 10^3/uL 10^3/uL (1.00-3.00) Absolute Monos (auto) 0.81 10^3/uL H 10^3/uL (0.30-0.80) Absolute Eos (auto) 0.47 10^3/uL H 10^3/uL (0.03-0.40) Absolute Basos (auto) 0.06 10^3/uL 10^3/uL (0.02-0.10) Absolute Nucleated RBC 0.00 10^3/uL 10^3/uL (0-0.01) Immature Gran % 0.4 % % (0.0-1.1) Immature Gran # 0.03 10^3/uL 10^3/uL (0.00-0.10) Sodium Potassium Chloride Carbon Dioxide Anion Gap BUN Creatinine Estimated GFR Glucose Calcium POC Troponin I Troponin I Point of Care Test Results: Chemistry 12/24/17 15:16 POC Troponin I 0.00 ng/mL ng/mL (0.00-0.08) Departure - Departure Disposition: [facility] Inpatient Acute Clinical Impression: Chest pain Qualifiers: Chest pain type: unspecified Qualified Code(s): R07.9 - Chest pain, unspecified Condition: Good
[2017-12-24 15:24] LABS: PLATELET COUNT 324 10^3/uL (150-400)
--- NOTE | 2017-12-24 15:25 | CPEKG ---
Test Reason : OPEN Blood Pressure : / mmHG Vent. Rate : 086 BPM Atrial Rate : 086 BPM P-R Int : 185 ms QRS Dur : 077 ms QT Int : 372 ms P-R-T Axes : 062 006 033 degrees QTc Int : 445 ms Sinus rhythm Confirmed by Yifan Leon ([id number]) on 12/24/2017 3:24:48 PM Referred By: Confirmed By:Yifan Leon
[2017-12-24] MEDS ORDERED: ZOLPIDEM TARTRATE 5 MG TAB PO PRN (15:59)
[2017-12-24] MEDS ORDERED: ONDANSETRON DISINTEGRATING 4 MG TAB PO PRN (15:59)
[2017-12-24] MEDS ORDERED: ACETAMINOPHEN 325 MG TAB PO PRN (15:59)
[2017-12-24] MEDS ORDERED: ONDANSETRON 4 MG/2 ML VIAL IVP PRN (15:59)
--- NOTE | 2017-12-24 17:18 | GHP ---
DATE OF ADMISSION: 12/24/2017 INDICATIONS: Known coronary artery disease, recurrent chest pain. HISTORY OF PRESENT ILLNESS: This is a 72-year-old female typically followed as an outpatient by Dr. Mau Alvarez. She has known coronary artery disease, which was initially discovered December 08 o this year after she presented with classic exertional and crescendo angina symptoms. At that time, she underwent cardiac catheterization, which demonstrated a subtotal proximal LAD lesion, as well as a high-grade lesion within the right coronary artery. These were both treated with PCI and stenting . Her ejection fraction was noted to be normal. She did have a 50%-60% mid LAD lesion, which was le ft alone at that time. She did well following the procedure was discharged. She presented again on December 10 with recurrent chest discomfort and symptoms of dizziness, as w ell as mild diaphoresis. She went back to the cardiac catheterization laboratory. At that time, bot h of her stents were noted to be widely patent. Ultimately, she underwent PCI and stenting of the pr eviously noted mid LAD lesion, which was reassessed by intravascular ultrasound and found to have a 7 2% stenosis. Since then, she has done relatively well. She was discharged on typical guideline dire cted medical therapy, which includes dual anti-platelet therapy. Earlier today, she was at the chart collector's office. Following her procedure, she developed the abrupt onset of right-sided parasternal sharp chest pain. This is described as a severe pain, fairly well localized, although she did notice some slight sensation in her right jaw. The pain was dissimilar t o previously noted pain in the fact that this was a sharp pain. There is no respirophasic component. The pain did not change with movement or position. She had no associated nausea, vomiting or diaph oresis. She took approximately 3 nitroglycerin and then called EMS. She was given a 4th nitroglycer in with resolution of her symptoms and is currently pain-free. She had no associated palpitations. She has had no injury to the chest wall. There is no rash. She has no history of DVT or PE. The pa in was not described as respirophasic. She has had no fever, chills or sweats. There is no history of hemoptysis. The pain was not ripping or tearing. On arrival here to the emergency department, she was pain-free. She was found to be hemodynamically stable with room air saturations of 95% and blood pressure of 135/86 with a heart rate of 88 beats pe r minute. Her initial ECG demonstrated sinus rhythm. PAST MEDICAL HISTORY: 1. Coronary artery disease as described above. 2. Hyperlipidemia. 3. Hypertension. 4. Hypothyroidism. 5. Osteoarthritis. PAST SURGICAL HISTORY: Previous right total hip arthroplasty, previous right total knee arthroplasty , intracoronary stent placement as described above. HOME MEDICATIONS: These are detailed on the chart and not repeated here. ALLERGIES: To Keflex and penicillin. She also claims allergies to Seconal, Septra, and tramadol. SOCIAL HISTORY: She is and accompanied by her . She uses alcohol only occasionally. She has never been a smoker. She is active on a daily basis usually walking. REVIEW OF SYSTEMS: A full 10-point review of systems was performed and was otherwise negative. FAMILY HISTORY: At this point is noncontributory. PHYSICAL EXAMINATION: VITAL SIGNS: Currently her blood pressure is 135/86 with a mean of 102, heart rate of 88, respiratory rate of 18, and room air saturations of 95%. GENERAL: She is a healthy whi te female in no acute distress. HEENT: Normocephalic, atraumatic. She has anicteric sclerae. Orop harynx unremarkable. NECK: Carotids are 2+ bilaterally with no bruits. She has no jugular venous d istention, adenopathy or thyromegaly. RESPIRATORY: She is breathing easily, resting comfortably, us ing no accessory muscles. On auscultation, she has clear lung castrejon bilaterally. CARDIAC: Precord ial inspection is unremarkable. She has no reproducible chest wall tenderness. On auscultation, she has a regular rate and rhythm without murmurs, gallops, or rubs. ABDOMEN: Soft and nontender with normoactive bowel sounds. She has no hepatosplenomegaly or masses. EXTREMITIES: Warm and dry witho ut edema. VASCULAR: She has 2+ radial, dorsal pedal, and posterior tibial pulses. Nonpalpable aort a. DATABASE: Her ECG demonstrates sinus rhythm with a resting heart rate of 86 beats per minute. She h as a normal axis. There are no ST or T changes. Chest x-ray is unremarkable. CBC is normal. Chemistry panel is unremarkable. Point of care troponin is negative at 0.00. IMPRESSION: The patient is 72 years old with known coronary artery disease as described above. She presents now with atypical chest discomfort. She had a 30 minute episode of fairly well localized ri ght-sided sharp chest discomfort without associated symptoms. She is currently pain-free. Her ECG a nd initial enzymes are negative. Overall, my suspicion for cardiac or pulmonary etiology to her symp toms is fairly low. I think her symptoms are either gastrointestinal or musculoskeletal in nature. There is no indication of an acute myocardial infarction at the present time. There is no indication of pulmonary embolism or aortic dissection. She is currently pain free. RECOMMENDATIONS: 1. She will be admitted to the telemetry unit. 2. Sequential cardiac enzymes will be drawn. 3. In the morning, she will be reassessed clinically and with an EKG. 4. In the absence of objective evidence of ischemia or infarction, I think that we can discharge her home tomorrow after she rules out with close clinical followup. /[id number]/MODL
[2017-12-24] MEDS ORDERED: MELATONIN 3 MG TAB PO PRN (23:17)
[2017-12-24] MEDS ORDERED: ATENOLOL 25 MG TAB PO SCH (23:30)
[2017-12-25 07:54] VITALS: BP 120/68
[2017-12-25] MEDS ORDERED: NITROGLYCERIN 0.4 MG BTL SL PRN (08:50)
[2017-12-25] MEDS ORDERED: ASPIRIN EC 325 MG TAB PO SCH (09:00)
[2017-12-25] MEDS ORDERED: ATORVASTATIN CALCIUM 40 MG TAB PO SCH (09:00)
[2017-12-25] MEDS ORDERED: Herbals/Supplements -Info Only PO SCH (09:00)
[2017-12-25] MEDS ORDERED: THYROID 60 MG TAB PO SCH (09:00)
[2017-12-25] MEDS ORDERED: PRASUGREL HCL 10 MG TAB PO SCH (09:00)
--- NOTE | 2017-12-25 10:11 | PDDCSUM ---
Discharge Summary Discharge Summary: Date of admission: 12/24/2017. Date of discharge: 12/25/2017. Hospital course: The patient was admitted through the emergency department with symptoms of atypical chest discomfort. She experienced 30 min of right- sided chest pain which was described as sharp. She was pain-free at the time of arrival. Her initial troponins and ECG were normal. She was placed on telemetry and observed. She remained in sinus rhythm during this hospitalization. Sequential cardiac enzymes were unremarkable. Her morning ECG was noted to be normal. She remained pain free during the hospitalization. Her previous cardiac catheterizations were personally reviewed. It was thought that her chest pain syndrome was atypical and not a reflection of her underlying cardiovascular disease. Additionally, the there was no indication of an infectious process, pulmonary thromboembolic disease or disease of the great vessels. As result it was thought that she was safe to be discharged from the hospital with close follow-up as an outpatient. Discharge medications: She will continue her home medications as prescribed. Follow-up: She will follow up with Dr. Mau Alvarez within the next week. Laboratory Tests 12/24/17 12/24/17 12/25/17 15:16 17:30 03:32 POC Troponin I 0.00 Troponin I < 0.012 Cholesterol 118 L LDL Cholesterol, Calc 61 L Non-HDL Cholesterol 77 L 12/25/17 03:32 POC Troponin I Troponin I < 0.012 Cholesterol LDL Cholesterol, Calc Non-HDL Cholesterol
--- NOTE | 2017-12-25 16:04 | CPEKG ---
Test Reason : OPEN Blood Pressure : / mmHG Vent. Rate : 066 BPM Atrial Rate : 068 BPM P-R Int : 183 ms QRS Dur : 081 ms QT Int : 385 ms P-R-T Axes : 041 -07 030 degrees QTc Int : 404 ms Sinus rhythm Confirmed by Irena Goode ([id number]) on 12/25/2017 4:03:57 PM Referred By: Confirmed By:Irena Goode
== END 2017-12-25 11:07 | disposition home or self-care (01) ==
LOC: EDUNIT# → F2W 17:00
PROVIDERS: ADMIT Internal Medicine Cardiovascular Disease; ATTEND Internal Medicine Cardiovascular Disease
DX: R07.89 Other chest pain (principal); I25.10 Atherosclerotic heart disease of native coronary artery without angina pectoris; Z95.5 Presence of coronary angioplasty implant and graft; I10 Essential (primary) hypertension; E78.5 Hyperlipidemia, unspecified; E03.9 Hypothyroidism, unspecified; M19.90 Unspecified osteoarthritis, unspecified site
CPT/HCPCS: 71046; 93005; G0378; 84484-PO

== ENCOUNTER → 2017-12-30 | Outpatient (CLI) | payer OTHER, BC | LOC: BHFA 10:30 | PROVIDERS: ATTEND Internal Medicine Cardiovascular Disease | DX: I25.10 Atherosclerotic heart disease of native coronary artery without angina pectoris (principal); I10 Essential (primary) hypertension; Z95.5 Presence of coronary angioplasty implant and graft ==

== ENCOUNTER → 2018-01-13 | Outpatient (CLI) | payer OTHER, BC | LOC: BMCIMAGING 10:26 | PROVIDERS: ATTEND Physician Assistant | DX: Z47.1 Aftercare following joint replacement surgery (principal); Z96.641 Presence of right artificial hip joint; Z96.651 Presence of right artificial knee joint ==

== ENCOUNTER → 2018-03-11 | Outpatient (CLI) | payer OTHER, BC | END | disposition home or self-care (01) | LOC: BMCIMAGING 13:29 | PROVIDERS: ATTEND Internal Medicine | DX: Z12.31 Encounter for screening mammogram for malignant neoplasm of breast (principal); Z80.3 Family history of malignant neoplasm of breast; Z80.41 Family history of malignant neoplasm of ovary; D25.9 Leiomyoma of uterus, unspecified ==

== ENCOUNTER 2018-04-05 13:01 | Emergency (ER) | payer OTHER, BC ==
[2018-04-05] MEDS ORDERED: ONDANSETRON 4 MG/2 ML VIAL ONE (13:42)
[2018-04-05] MEDS ORDERED: ONDANSETRON 4 MG/2 ML VIAL IVP ONE (13:44)
[2018-04-05] MEDS ORDERED: ASPIRIN 81 MG CHEWABLE TAB PO ONE (13:51)
[2018-04-05] MEDS ORDERED: NITROGLYCERIN 0.4 MG BTL SL PRN (13:51)
--- NOTE | 2018-04-05 13:54 | EDPHY ---
H & P Stated Complaint: R upper sharp chest pain x 2 days Time Seen by Provider: 04/05/18 13:24 HPI/ROS: CHIEF COMPLAINT: Right-sided chest pain HISTORY OF PRESENT ILLNESS: This is a 73-year-old female with history of coronary artery disease, status post cardiac catheterization in November of 2017 followed by stenting. She was admitted to this hospital in December of 2017 with right-sided chest pain and at that time a cardiac etiology was ruled out. She states that today's chest pain does not feel like what she experienced last December. She describes this pain as sharp, in the right upper mid chest and maybe extending into her back a bit. It is constant. It is worse with movement and with lifting, but she was able to shovel snow and exercise without exacerbating this pain. It is not pleuritic and she is not short of breath. She has not had fever or cough. It began 2 days ago. It is her impression that this is likely her gallbladder. She tells me that she has had gallbladde "attacks" in the past and that she feels them in her mid right chest. REVIEW OF SYSTEMS: A ten system review of systems was performed and is negative with the exception of the items mentioned in the HPI. Past medical history: 1. Coronary artery disease 2. Hypertension 3. Hyperlipidemia 4. Hypothyroidism 5. Osteoarthritis Past surgical history: 1. Cardiac catheterization in November of 2017 2. Right hip replacement 3. right total knee Social history: She lives with her . 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 Very rare alcohol use. No tobacco use. General Appearance: Alert. Vital signs reviewed. Blood pressure 166/109 Eyes: Pupils equal and round, no conjunctival injection, no discharge. Anicteric. ENT, Mouth: Mucous membranes are moist, no oropharyngeal erythema or edema. Neck: No lymphadenopathy, supple. No JVD. Thorax: Point tenderness with palpation of the right upper thorax in the midclavicular line, 2 fingerbreadths below the clavicle. Respiratory: Lungs are clear to auscultation; no wheezes, rales, or rhonchi. Cardiovascular: Regular rate and rhythm; no murmur, rub, or gallop. Gastrointestinal: Abdomen is soft and nontender, no masses or organomegaly, bowel sounds normal. Skin: Warm and dry, no rashes on exposed skin, normal color. Back: Nontender to palpation over the thoracolumbar spine. No CVAT. Extremities: No lower extremity edema, no calf tenderness or swelling. Neurological: Alert and oriented. Moving all four extremities easily and equally. Psychiatric: Normal affect. - Personal History Tetanus Vaccine Date: 2011 - Medical/Surgical History Hx Asthma: No Hx Chronic Respiratory Disease: No Hx Diabetes: No Hx Cardiac Disease: Yes Hx Renal Disease: No Hx Cirrhosis: No Hx Alcoholism: No Hx HIV/AIDS: No Hx Splenectomy or Spleen Trauma: No Other PMH: r hip replacement, HTN, hypothyroid, R knee 2016, 03/10 cardiac stents x4 placed - Social History Smoking Status: Never smoked Constitutional: Initial Vital Signs Temperature (C) 36.8 C 04/05/18 13:05 Heart Rate 85 04/05/18 13:05 Respiratory Rate 20 04/05/18 13:05 Blood Pressure 166/109 H 04/05/18 13:05 O2 Sat (%) 97 04/05/18 13:05 O2 Delivery Mode Room Air Allergies/Adverse Reactions: cephalexin monohydrate [From Keflex] Allergy (Verified 12/24/17 15:14) Hives latex Allergy (Verified 12/24/17 15:14) Rash Penicillins Allergy (Verified 12/24/17 15:14) Hives secobarbital sodium [From [place]conal] Allergy (Verified 12/24/17 15:14) Hives sulfamethoxazole [From Septra] Allergy (Verified 12/24/17 15:14) Hives tramadol Allergy (Verified 12/24/17 15:14) trimethoprim [From Septra] Allergy (Verified 12/24/17 15:14) Hives narcotics Allergy (Uncoded 01/07/17 14:05) Vomiting Home Medications: Medication Instructions Recorded Atenolol [Tenormin 25 mg (*)] 25 mg PO HS 12/08/17 Herbals/Supplements -Info Only 1 ea PO DAILY 12/08/17 Thyroid [[place] Thyroid 60 MG (*)] 60 mg PO DAILY 12/08/17 Acetaminophen [Tylenol 325mg (*)] 650 mg PO QID PRN tab 12/09/17 Aspirin EC [Aspirin EC 325 mg (*)] 325 mg PO DAILY #0 tab 12/09/17 Atorvastatin Calcium [Lipitor 40 40 mg PO DAILY #30 tab 12/09/17 mg (*)] Nitroglycerin [Nitrostat 0.4 mg 0.4 mg SL Q5M PRN #1 btl 12/09/17 (*)] Melatonin [Melatonin 3 MG (*)] 3 mg PO HS PRN tab 12/12/17 Prasugrel HCl 10 mg PO DAILY #30 tablet 12/12/17 Medical Decision Making - Diagnostics EKG Interpretation: 12 lead EKG is interpreted in [address] by emergency department physician. No acute ischemic changes. Sinus rhythm with a rate of 74. Imaging: Discussed imaging studies w/ technology specialist Radiologist, I viewed and interpreted images myself ED Course/Re-evaluation: 73-year-old female with known coronary artery disease status post catheterization and stenting in the fall. She presents with 2 days of sharp right-sided chest pain. She was seen in December of 2017 and admitted to the hospital for cardiac rule out with right-sided chest pain. She tells me that today's pain is different from what she was experiencing in December. She is compliant with all of her medications. Initial troponin is normal. EKG is without ischemic changes. CBC and chemistries within normal limits. D-dimer very very slightly elevated at 0.51, but with age-adjusted d-dimer guidelines this is not abnormal. She is on a blood thinner making PE less likely. Patient herself feels that her pain is related to her gallbladder. I think that the location of this pain makes gallbladder disease unlikely. She tells me that she has experienced pain like this in the past and attributed it to a gallbladder problem. In the past when she has had this pain she takes apple cider vinegar combined with juice and feels better. This usually occurs after she has eaten fatty foods. She has not recently had fatty foods. She tried apple cider vinegar but the pain has persisted. Nevertheless, she thinks that this pain might be related to her gallbladder. Chest x-ray reviewed by me. No acute pulmonary disease. HEART score is 4. This puts her in the moderate range for the risk of an acute major cardiac event within the next 6 weeks. Patient requests a gallbladder ultrasound. I talked with her again about the location of her pain which would be unusual for pain of gallbladder origin. She is not experiencing any shoulder pain. RUQ US: normal gallbladder, hypodensity pancreatic head. CT recommended for further evaluation of pancreas. Tylenol ordered for pain. 1608: Reevaluated patient and discussed results. Recommended abdominal CT for better evaluation of her pancreas. Creatinine is slightly elevated at 1.2, 1L IV NS ordered. Abdominal CT: pancreas normal, no other abnormalities aside from constipation, please see formal report. I discussed the evaluation that has been done in the emergency department with patient and her . Although I think that the nature and location of her pain makes it highly unlikely to be of cardiac origin, she does have a HEART score of 4. I discussed the meaning of this score. I have offered her overnight hospitalization for further evaluation. She too feels that this is unlikely to be heart pain and does not wish to be hospitalized. She remembers being hospitalized in December with right-sided pain. Today's pain is different from the pain that she experienced at that visit. She understands that the etiology of her pain has not been discovered and that cardiac origin has not been definitively ruled out. She is comfortable returning home. She had some pain relief with Tylenol and she will continue with Tylenol at home. She is on a blood thinner and has been advised to avoid anti-inflammatory medications. Should anything change or worsen she will come back for re-evaluation. I am recommending follow up with her primary care physician and her raw shellfish preparer. She has been hypertensive in the emergency department. Blood pressure 139/80 at discharge. She will have her blood pressure rechecked by her primary care physician. Differential Diagnosis: Chest pain including but not limited to myocardial ischemia, pulmonary embolus, chest wall pain, pleural inflammation and pulmonary infectious causes. - Data Points Laboratory Results: Laboratory Results 04/05/18 13:30 04/05/18 13:30 Medications Given: Discontinued Medications Acetaminophen (Tylenol) 650 mg PO EDNOW ONE Stop: 04/05/18 16:00 Last Admin: 04/05/18 16:20 Dose: 650 mg Aspirin (Aspirin) 243 mg PO EDNOW ONE Stop: 04/05/18 13:52 Last Admin: 04/05/18 14:02 Dose: 243 mg Sodium Chloride (Ns) 1,000 mls @ 0 mls/hr IV EDNOW ONE; Wide Open PRN Reason: Protocol Stop: 04/05/18 16:24 Last Admin: 04/05/18 16:26 Dose: 1,000 mls Nitroglycerin (Nitrostat) 0.4 mg SL Q5M PRN PRN Reason: Chest Pain Last Admin: 04/05/18 14:02 Dose: 0.4 mg Ondansetron HCl (Zofran) 4 mg IVP EDNOW ONE Stop: 04/05/18 13:45 Last Admin: 04/05/18 13:45 Dose: 4 mg Point of Care Test Results: Chemistry 04/05/18 13:37 POC Troponin I 0.00 ng/mL ng/mL (0.00-0.08) Departure - Departure Disposition: Home, Routine, Self-Care Clinical Impression: Chest pain Qualifiers: Chest pain type: other chest pain Qualified Code(s): R07.89 - Other chest pain Condition: Good Instructions: Chest Pain (ED) Additional Instructions: Follow up with your primary care provider this week for unimproved symptoms. Return to the ED for any worsening of condition. You received 650 mg of Tylenol at 4:20 p.m.. You can take Tylenol every 4 hours. As we discussed, you should not take more than 3000 mg of Tylenol in a 24 hr time period. Referrals: Juanita Mason MD [Primary Care Provider] - As per Instructions Report Scribed for: Madeline Guerin Report Scribed by: Iva Davidson Date of Report: 04/05/18 Time of Report: 18:07 Physician Review and Approval Statement: 04/05/18 18:07 Portions of this note were transcribed by the medical assistant ob gyn. I, Dr. Madeline Guerin, personally performed the history, physical exam, and medical decision- making; and confirmed the accuracy of the information in the transcribed note.
[2018-04-05 14:03] LABS: PLATELET COUNT 290 10^3/uL (150-400)
[2018-04-05] MEDS ORDERED: ACETAMINOPHEN 325 MG TAB PO ONE (15:59)
[2018-04-05] MEDS ORDERED: NS 1,000 ML IV ONE (16:23)
[2018-04-05] MEDS ORDERED: IOPAMIDOL (ISOVUE 370) 100 ML BTL IV ONE (16:36)
--- NOTE | 2018-04-05 18:01 | CPEKG ---
Test Reason : OPEN Blood Pressure : / mmHG Vent. Rate : 074 BPM Atrial Rate : 075 BPM P-R Int : 185 ms QRS Dur : 081 ms QT Int : 387 ms P-R-T Axes : 056 005 047 degrees QTc Int : 430 ms Sinus rhythm Probable left atrial enlargement Confirmed by Madeline Guerin ([id number]) on 04/05/2018 6:00:49 PM Referred By: Confirmed By:Madeline Guerin
[2018-04-05 18:06] VITALS: BP 139/80
== END 2018-04-05 18:12 | disposition home or self-care (01) ==
DX: R07.89 Other chest pain (principal); E86.9 Volume depletion, unspecified
CPT/HCPCS: 71046; 74177; 76705; 93005; 96361; 96374; 99285; J2405; Q9967; 84484-ER

== ENCOUNTER → 2018-05-06 | Outpatient (CLI) | payer OTHER, BC | LOC: FIMAGING 08:33 | PROVIDERS: ATTEND Internal Medicine | DX: R10.11 Right upper quadrant pain (principal) | CPT/HCPCS: 78227; A9537 ==

== ENCOUNTER 2018-09-12 14:43 | Emergency (ER) | payer OTHER, BC | END 2018-09-12 18:30 | disposition home or self-care (01) ==